=== PATIENT | female | born 1940 | race Caucasian/White ===

== ENCOUNTER 2016-11-26 17:00 | Observation (INO) ==
--- NOTE | 2016-11-26 19:39 | Emergency Department Note ---
START Narrative - START START: I examined this patient and my medical decision-making was reviewed with the Resident Physician. I agree with the documented findings, disposition and treatment plan as described except to the extent set forth below. Female patient recently discharged from [facility] with complaints of knee pain. She admits to warmth and pain around the kneecap on the right side. She has good distal pulses on arrival. At this point we are concern for cellulitis versus DVT. We will obtain duplexes as well as x-ray the knee and obtain basic laboratory analyses. Final disposition will be pending results of ultrasound as well as x-ray findings and laboratory analyses
[2016-11-26] MEDS ORDERED: *HR* HYDROmorphone (PF) 1 MG/ML SYRINGE IVP ONE ×2 (19:41→23:53)
[2016-11-26] MEDS ORDERED: Ondansetron 4 MG/2 ML VIAL IVP ONE (19:41)
[2016-11-26] MEDS ORDERED: 0.9 % Sodium Chloride 1,000 ML IVC ONE (19:58)
[2016-11-26 20:39] LABS: Basophils % 0.4 %; Eosinophils # 0.1 K/mcL (0.0-0.6); Eosinophils % 1.7 %; Hematocrit 24.2 % (35.3-44.9); Immature Granulocytes % 0.4 % (0-4); Lymphocytes # 1.2 K/mcL (0.6-4.6); Lymphocytes % 14.2 %; Mean Corpuscular HGB Conc 30.2 g/dL (31.6-35.5); Mean Corpuscular Hemoglobin 28.1 pg (28.0-33.3); Mean Corpuscular Volume 93.1 fL (83.0-100.0); Mean Platelet Volume 8.4 fL (9.4-12.4); Monocytes # 0.6 K/mcL (0.0-1.3); Monocytes % 6.5 %; Neutrophils # 6.5 K/mcL (1.6-8.9); Platelet Count 343 K/mcL (140-400); Red Cell Distribution Width 13.7 % (11.5-14.5); Segmented Neutrophils % 76.8 %
--- NOTE | 2016-11-26 20:46 | Emergency Department Note ---
Disposition Clinical Impression: Anemia Qualifiers: Anemia type: unspecified type Qualified Code(s): D64.9 - Anemia, unspecified Disposition: Still a Patient Condition: Good Referrals: Frank Stevenson DO [Primary Care Provider] - Forms: ED Satisfaction Letter Time of Disposition: 22:54 General Adult HPI - General Chief complaint: ED Extremity Problem,Nontraumatic Stated complaint: right knee, painful, streak going up Time Seen by Provider: 11/26/16 19:33 Source: patient, family Limitations: no limitations Nursing Notes Reviewed: Yes Vital Signs Reviewed: Yes - History of Present Illness HPI Narrative: 76-year-old female presenting to the emergency department with chief complaint of right knee pain. Patient was recently discharged from [facility] after having an intracranial bleed from a fall. Family members at bedside states she has been more fatigued than normal and has been sleepier. Patient states she does have a history of chronic anemia and has had blood transfusions in the past. Patient denies any trauma or falls that area. She does state she has a history of gout and is concerned and that is what is going on. Patient's family is also concerned about her kidney function because they believe she is not eating and drinking well at home. Patient denies any syncopal episodes or hitting her head. She denies shortness of breath and chest pain at this time. Pain Scale: 8 - Related Data Home Medications Medication Instructions Recorded Confirmed Atorvastatin [Lipitor] 10 mg PO HS 10/23/14 11/26/16 GlyBURIDE 5 mg PO 0800 10/23/14 11/26/16 Quinapril HCl [Accupril] 40 mg PO DAILY 10/23/14 11/26/16 Triamterene/HCTZ 37.5/25mg 1 tab PO DAILY 10/23/14 11/26/16 [Dyazide] Aspirin 81 mg PO DAILY 11/26/16 11/26/16 LORazepam [Ativan] 1 mg PO TID PRN 11/26/16 11/26/16 Metoprolol Succinate 100 mg PO QPM 11/26/16 11/26/16 cloNIDine HCl [CloNIDine HCl] 0.1 mg PO BID 11/26/16 11/26/16 Allergies Allergy/AdvReac Type Severity Reaction Status Date / Time prednisolone Allergy Vomiting Verified 08/15/16 10:59 All systems ED: reviewed and negative except as stated. Constitutional: Reports: weakness. Denies: fever, chills Eyes: Reports: as per HPI ENT ED: Reports: as per HPI Cardiovascular: Denies: chest pain, palpitations Respiratory: Denies: cough, dyspnea, wheezes Gastrointestinal: Denies: abdominal pain, nausea, vomiting Genitourinary: Reports: as per HPI Musculoskeletal: Reports: other (Right knee pain) Integumentary: Reports: other (Patient has multiple ecchymosis noted over the face) Neurological: Denies: numbness, paresthesias Psychiatric: Reports: as per HPI Endocrine: Reports: as per HPI Hematological/Lymphatic: Reports: as per HPI Allergic/Immunologic: Reports: as per HPI Past Medical History - Past Medical History Attestation: Yes The following information was validated with the patient. Medical history: Reports: COPD, diabetes, hypertension Surgical history: Reports: other Psychiatric history: Reports: anxiety - Social History Smoking Status: Current every day smoker Smokeless Tobacco Status: No Alcohol use: Reports: none Drug use: Reports: none Physical Exam - General Limitations: no limitations General appearance: alert, in no apparent distress - Head Head exam: atraumatic, normocephalic, normal inspection - Chest Chest inspection: Present: normal inspection, symmetric chest wall rise. Absent : tenderness, rash - Respiratory Respiratory exam: Present: normal lung sounds bilaterally. Absent: respiratory distress, wheezes - Cardiovascular Cardiovascular exam: Present: regular rate, normal rhythm, normal heart sounds - Abdominal Exam Abdominal exam: Present: soft, Non-Tender. Absent: distention, guarding, rebound - Rectal Exam Rectal exam: Present: normal inspection, normal rectal tone. Absent: fecal impaction, hemorrhoids - Extremities Exam Extremities exam: Present: normal inspection, full ROM - Neurological Exam Neurological exam: Present: alert, oriented X3 - Psychiatric Psychiatric exam: Present: normal affect, normal mood - Skin Skin exam: Present: warm, intact, other (Multiple ecchymosis noted throughout the patient's body. Multiple noted throughout the face and scalp.) Course Course Narrative: 76-year-old female presents to the emergency Department chief complaint of right knee pain and swelling. Patient is concerned for cellulitis or DVT. We will obtain basic lab work along with bilateral lower extremity Doppler and x- ray of the knee. Patient alert and oriented 3 in the room with stable vital signs at this time. - Reevaluation(s) Reevaluation #1: Lab work has returned and showed significant anemia with hemoglobin of 7.3. Bilateral lower extremity Doppler was within normal limits. We will obtain an occult stool sample at this time to determine source of bleeding. Disposition will be admission at this time. Time: 21:57 Reevaluation #2: "Stool is negative. Spoke with the hospitalist chief construction inspector Dr. Alcazar would like a CT scan of the head before he agrees to admit the patient. We will obtain a set this time. Patient alert and oriented 3 with stable vital signs at this time. Time: 22:15 Reevaluation #3: CT of the head still pending at this time. I will transfer care of the patient to my fellow resident Dr. Stewart. Time: 22:54 Vital Signs Temperature 98.0 F 11/26/16 17:25 Pulse Rate 81 11/26/16 17:25 Respiratory Rate 16 11/26/16 17:25 Blood Pressure 219/75 11/26/16 17:25 O2 Sat by Pulse Oximetry 96 11/26/16 17:25 Temperature 98.0 F 11/26/16 17:25 Pulse Rate 71 11/26/16 22:34 Respiratory Rate 16 11/26/16 22:34 Blood Pressure 152/48 11/26/16 22:34 O2 Sat by Pulse Oximetry 96 11/26/16 22:34 Oxygen Delivery Oxygen Delivery Room Air Medical Decision Making - Lab Data Result diagrams: 11/26/16 20:19 11/26/16 20:19 Lab Results 11/26/16 11/26/16 11/26/16 Range/Units 20:19 20:19 20:19 WBC 8.5 (4.3-11.1) K/mcL RBC 2.60 L (3.82-4.97) M/mcL Hgb 7.3 L (11.5-15.4) g/dL Hct 24.2 L (35.3-44.9) % MCV 93.1 (83.0-100.0) fL MCH 28.1 (28.0-33.3) pg MCHC 30.2 L (31.6-35.5) g/dL RDW 13.7 (11.5-14.5) % Plt Count 343 (140-400) K/mcL MPV 8.4 L (9.4-12.4) fL Immature Gran % 0.4 (0-4) % Seg Neutrophils % 76.8 % Lymphocytes % 14.2 % Monocytes % 6.5 % Eosinophils % 1.7 % Basophils % 0.4 % Neutrophils # 6.5 (1.6-8.9) K/mcL Lymphocytes # 1.2 (0.6-4.6) K/mcL Monocytes # 0.6 (0.0-1.3) K/mcL Eosinophils # 0.1 (0.0-0.6) K/mcL Basophils # 0.0 (0.0-0.2) K/mcL ESR 40 H (0-15) mm/hr Sodium 139 (136-145) mEq/L Potassium 4.1 (3.5-4.5) mEq/L Chloride 107 (98-109) mEq/L Carbon Dioxide 26 (19-29) mEq/L BUN 19 (7-20) mg/dL Creatinine 2.00 H (0.57-1.11) mg/dL Est GFR ( Amer) 29 L (> 60) Est GFR (Non-Af Amer) 24 L (> 60) BUN/Creatinine Ratio 10 (6-26) Glucose 161 H (70-99) mg/dL Calculated Osmolality 294 (280-300) Calcium 8.4 L (8.6-10.8) mg/dL Stool Occult Blood (Negative) Blood Type Antibody Screen 11/26/16 11/26/16 Range/Units 21:44 21:57 WBC (4.3-11.1) K/mcL RBC (3.82-4.97) M/mcL Hgb (11.5-15.4) g/dL Hct (35.3-44.9) % MCV (83.0-100.0) fL MCH (28.0-33.3) pg MCHC (31.6-35.5) g/dL RDW (11.5-14.5) % Plt Count (140-400) K/mcL MPV (9.4-12.4) fL Immature Gran % (0-4) % Seg Neutrophils % % Lymphocytes % % Monocytes % % Eosinophils % % Basophils % % Neutrophils # (1.6-8.9) K/mcL Lymphocytes # (0.6-4.6) K/mcL Monocytes # (0.0-1.3) K/mcL Eosinophils # (0.0-0.6) K/mcL Basophils # (0.0-0.2) K/mcL ESR (0-15) mm/hr Sodium (136-145) mEq/L Potassium (3.5-4.5) mEq/L Chloride (98-109) mEq/L Carbon Dioxide (19-29) mEq/L BUN (7-20) mg/dL Creatinine (0.57-1.11) mg/dL Est GFR ( Amer) (> 60) Est GFR (Non-Af Amer) (> 60) BUN/Creatinine Ratio (6-26) Glucose (70-99) mg/dL Calculated Osmolality (280-300) Calcium (8.6-10.8) mg/dL Stool Occult Blood Negative (Negative) Blood Type A POSITIVE Antibody Screen NEGATIVE
[2016-11-26 20:52] LABS: Calcium 8.4 mg/dL (8.6-10.8); Hemoglobin 7.3 g/dL (11.5-15.4); Potassium 4.1 mEq/L (3.5-4.5)
[2016-11-26] MEDS ORDERED: *HR* Labetalol 20 MG/4 ML SYRINGE IVP ONE (21:45)
[2016-11-26] MEDS ORDERED: *HR* LORazepam 1 MG TABLET PO ONE (21:46)
--- NOTE | 2016-11-27 00:37 | Emergency Department Note ---
Disposition Clinical Impression: Right anterior knee pain Anemia Qualifiers: Anemia type: unspecified type Qualified Code(s): D64.9 - Anemia, unspecified Disposition: Admitted As Inpatient Condition: Good Referrals: Frank Stevenson DO [Primary Care Provider] - General Adult HPI - General Chief complaint: ED Extremity Problem,Nontraumatic Stated complaint: right knee, painful, streak going up Time Seen by Provider: 11/26/16 19:33 Source: patient, family Limitations: no limitations Nursing Notes Reviewed: Yes Vital Signs Reviewed: Yes - History of Present Illness Pain Scale: 4 - Related Data Home Medications Medication Instructions Recorded Confirmed Atorvastatin [Lipitor] 10 mg PO HS 10/23/14 11/26/16 GlyBURIDE 5 mg PO 0800 10/23/14 11/26/16 Quinapril HCl [Accupril] 40 mg PO DAILY 10/23/14 11/26/16 Triamterene/HCTZ 37.5/25mg 1 tab PO DAILY 10/23/14 11/26/16 [Dyazide] Aspirin 81 mg PO DAILY 11/26/16 11/26/16 LORazepam [Ativan] 1 mg PO TID PRN 11/26/16 11/26/16 Metoprolol Succinate 100 mg PO QPM 11/26/16 11/26/16 cloNIDine HCl [CloNIDine HCl] 0.1 mg PO BID 11/26/16 11/26/16 Allergies Allergy/AdvReac Type Severity Reaction Status Date / Time prednisolone Allergy Vomiting Verified 08/15/16 10:59 Constitutional: Reports: weakness. Denies: fever, chills Eyes: Reports: as per HPI ENT ED: Reports: as per HPI Cardiovascular: Denies: chest pain, palpitations Respiratory: Denies: cough, dyspnea, wheezes Gastrointestinal: Denies: abdominal pain, nausea, vomiting Genitourinary: Reports: as per HPI Musculoskeletal: Reports: other (Right knee pain) Integumentary: Reports: other (Patient has multiple ecchymosis noted over the face) Neurological: Denies: numbness, paresthesias Psychiatric: Reports: as per HPI Endocrine: Reports: as per HPI Hematological/Lymphatic: Reports: as per HPI Allergic/Immunologic: Reports: as per HPI Past Medical History - Past Medical History Medical history: Reports: COPD, diabetes, hypertension Surgical history: Reports: other Psychiatric history: Reports: anxiety - Social History Smoking Status: Current every day smoker Smokeless Tobacco Status: No Alcohol use: Reports: none Drug use: Reports: none Physical Exam - General Limitations: no limitations General appearance: alert, in no apparent distress Course Vital Signs Temperature 98.0 F 11/26/16 17:25 Pulse Rate 81 11/26/16 17:25 Respiratory Rate 16 11/26/16 17:25 Blood Pressure 219/75 11/26/16 17:25 O2 Sat by Pulse Oximetry 96 11/26/16 17:25 Temperature 98.2 F 11/27/16 00:30 Pulse Rate 72 11/27/16 00:30 Respiratory Rate 16 11/27/16 00:30 Blood Pressure 157/53 11/27/16 00:30 O2 Sat by Pulse Oximetry 99 11/27/16 00:30 Oxygen Delivery Oxygen Delivery Nasal Cannula Medical Decision Making - MDM Narrative Medical decision making narrative: I, Owen Rhodes, examined this patient and my medical decision-making was reviewed with the TRAFFIC MAINTENANCE OFFICER/PA/Advanced Practice Nurse/Resident Physician. I agree with the documented findings, disposition and treatment plan as described except to the extent set forth below. 76-year-old female received in sign out at [address] of the head and reevaluation and likely admission to the hospital for symptomatic anemia. Patient recently had trauma to the head and sustained intracranial hemorrhage. She was cared for at [facility]. Patient now feels increasingly weak and fatigued and presented initially for right knee pain. Right knee does not show evidence of acute fracture on x-ray. She has mild erythema to the anterior knee. She states she has a history of gout and this feels similar. Patient had hemoglobin of 7.3. Patient will be admitted to the hospital for further care and evaluation of her anemia and right knee pain. - Medical Records Medical records reviewed: Yes I reviewed the patient's medical records. - Lab Data Lab results reviewed: Yes I reviewed the patient's lab results. Result diagrams: 11/26/16 20:19 11/26/16 20:19 Lab Results 11/26/16 11/26/16 11/26/16 Range/Units 20:19 20:19 20:19 WBC 8.5 (4.3-11.1) K/mcL RBC 2.60 L (3.82-4.97) M/mcL Hgb 7.3 L (11.5-15.4) g/dL Hct 24.2 L (35.3-44.9) % MCV 93.1 (83.0-100.0) fL MCH 28.1 (28.0-33.3) pg MCHC 30.2 L (31.6-35.5) g/dL RDW 13.7 (11.5-14.5) % Plt Count 343 (140-400) K/mcL MPV 8.4 L (9.4-12.4) fL Immature Gran % 0.4 (0-4) % Seg Neutrophils % 76.8 % Lymphocytes % 14.2 % Monocytes % 6.5 % Eosinophils % 1.7 % Basophils % 0.4 % Neutrophils # 6.5 (1.6-8.9) K/mcL Lymphocytes # 1.2 (0.6-4.6) K/mcL Monocytes # 0.6 (0.0-1.3) K/mcL Eosinophils # 0.1 (0.0-0.6) K/mcL Basophils # 0.0 (0.0-0.2) K/mcL ESR 40 H (0-15) mm/hr Sodium 139 (136-145) mEq/L Potassium 4.1 (3.5-4.5) mEq/L Chloride 107 (98-109) mEq/L Carbon Dioxide 26 (19-29) mEq/L BUN 19 (7-20) mg/dL Creatinine 2.00 H (0.57-1.11) mg/dL Est GFR ( Amer) 29 L (> 60) Est GFR (Non-Af Amer) 24 L (> 60) BUN/Creatinine Ratio 10 (6-26) Glucose 161 H (70-99) mg/dL Calculated Osmolality 294 (280-300) Calcium 8.4 L (8.6-10.8) mg/dL Stool Occult Blood (Negative) Blood Type Antibody Screen Crossmatch 11/26/16 11/26/16 Range/Units 21:44 21:57 WBC (4.3-11.1) K/mcL RBC (3.82-4.97) M/mcL Hgb (11.5-15.4) g/dL Hct (35.3-44.9) % MCV (83.0-100.0) fL MCH (28.0-33.3) pg MCHC (31.6-35.5) g/dL RDW (11.5-14.5) % Plt Count (140-400) K/mcL MPV (9.4-12.4) fL Immature Gran % (0-4) % Seg Neutrophils % % Lymphocytes % % Monocytes % % Eosinophils % % Basophils % % Neutrophils # (1.6-8.9) K/mcL Lymphocytes # (0.6-4.6) K/mcL Monocytes # (0.0-1.3) K/mcL Eosinophils # (0.0-0.6) K/mcL Basophils # (0.0-0.2) K/mcL ESR (0-15) mm/hr Sodium (136-145) mEq/L Potassium (3.5-4.5) mEq/L Chloride (98-109) mEq/L Carbon Dioxide (19-29) mEq/L BUN (7-20) mg/dL Creatinine (0.57-1.11) mg/dL Est GFR ( Amer) (> 60) Est GFR (Non-Af Amer) (> 60) BUN/Creatinine Ratio (6-26) Glucose (70-99) mg/dL Calculated Osmolality (280-300) Calcium (8.6-10.8) mg/dL Stool Occult Blood Negative (Negative) Blood Type A POSITIVE Antibody Screen NEGATIVE Crossmatch See Detail - Radiology Data Radiology results reviewed: Yes I reviewed the patient's radiology results.
[2016-11-27] MEDS ORDERED: 0.9 % Sodium Chloride 250 ML ONE (01:13)
[2016-11-27] MEDS: Lisinopril 20 MG TABLET PO SCH (13:03)
[2016-11-27] MEDS: cloNIDine HCl 0.1 MG TABLET PO SCH ×2 (13:03→20:30)
[2016-11-27] MEDS: Aspirin 81 MG TAB.CHEW PO SCH (13:03)
[2016-11-27] MEDS: methylPREDNISolone 4 MG TABLET PO SCH ×2 (13:06→17:35)
[2016-11-27] MEDS: *HR* LORazepam 1 MG TABLET PO PRN ×2 (13:07→20:34)
[2016-11-27] MEDS ORDERED: Acetaminophen 325 MG TABLET PO PRN (13:08)
[2016-11-27] MEDS ORDERED: Ondansetron 4 MG/2 ML VIAL IVP PRN (13:08)
[2016-11-27] MEDS ORDERED: Naloxone 0.4 MG/ML INJ IVP PRN (13:08)
[2016-11-27] MEDS ORDERED: *HR* HYDROmorphone (PF) 1 MG/ML SYRINGE IVP PRN (13:08)
[2016-11-27 13:40] LABS: Hematocrit 27.5 % (35.3-44.9); Hemoglobin 8.8 g/dL (11.5-15.4)
[2016-11-27 13:51] LABS: % Iron Saturation 10 % (15-50); Iron 29 mcg/dL (50-170); Transferrin 212 mg/dL (180-382)
[2016-11-27 14:27] LABS: Folate 7.7 ng/mL (7.0-31.4)
--- NOTE | 2016-11-27 15:28 | Internal Med History&Physical ---
Date of Encounter: 11/27/16 Time of Encounter: 12:00 Assessment and Plan (1) Right knee pain Current visit: Yes Status: Acute She has had similar symptoms in the past and had been diagnosed with gout and treated outpatient with Medrol pack. Due to her history and typical symptoms I do not think that a knee tap is necessary. I do not suspect septic arthritis. We will prescribe Medrol pack and monitor clinically. I will order PT OT. Qualifiers: Chronicity: acute Qualified Code(s): M25.561 - Pain in right knee (2) Gout attack Current visit: Yes Status: Acute Medrol pack as above. Pain control with acetaminophen and IV Dilaudid. Qualifiers: Gout site: knee Gout etiology: idiopathic Laterality: right Qualified Code(s): M10.061 - Idiopathic gout, right knee (3) Tobacco abuse Current visit: Yes Status: Acute I have provided smoking cessation counseling. We will offer nicotine replacement therapy. (4) CAD (coronary artery disease) Current visit: No Status: Chronic Continue with aspirin, lisinopril, metoprolol and Lipitor. Qualifiers: Coronary Disease-Associated Artery/Lesion type: [place] artery [place] vs. transplanted heart: [place] heart Associated angina: without angina Qualified Code(s): I25.10 - Atherosclerotic heart disease of [place] coronary artery without angina pectoris (5) Anemia Current visit: Yes Status: Acute Hemoglobin dropped to 7.3 today from 12.8 in October 2016 as reviewed in her medical record. Fecal occult blood testing was negative however that does not rule out a slow GI bleeding. For workup I will order iron panel, ferritin B12 and folate. We will consult GI for given that she has been complaining of long-standing nausea and concerned of chronic gastritis or esophageal cancer in an elderly patient with greater than 50 years history of smoking. Qualifiers: Anemia type: unspecified type Qualified Code(s): D64.9 - Anemia, unspecified (6) Non-insulin dependent type 2 diabetes mellitus Current visit: No Status: Acute Continue with glyburide. Check blood glucose fingerstick 4 times daily and add low dose insulin sliding scale. (7) HTN (hypertension) Current visit: No Status: Acute Continue home antihypertensive medication regimen. Qualifiers: Hypertension type: essential hypertension Qualified Code(s): I10 - Essential (primary) hypertension Internal Medicine - H&P: HPI Chief complaint: Right knee pain Admitted From: Emergency Dept Plans for Post Hospital Care: Home History of present illness: Ms. Pierre is a 76 year old female with past medical history significant for gout and recent fall with head injury and intracranial bleed who presented to the hospital for evaluation of right knee pain. She reports severe, sharp right knee pain that started yesterday, worse with ambulation, associated with swelling of the right knee which developed over the same time. Denies associated fevers chills and numbness. She has been unable to bear weight. Review of systems negative for chest pain shortness of breath, vision changes seizures, negative for depression, negative for hematuria and dysuria. Negative for rectal bleeding hematemesis and melena. Past medical history coronary artery disease status post stent placement and gout Surgical history hysterectomy Social history: She is a 1 pack-a-day smoker and has smoked since age 19. Denies alcohol and drug use. Family history: Reviewed and found to be noncontributory in this patient due to her advanced age. Past Med Surg Social Fam HX - Past Medical History Medical history: COPD, diabetes, hypertension Psychiatric history: anxiety - Past Surgical History Surgical History: other - Social History Smoking Status: Current every day smoker Smokeless Tobacco Status: No Alcohol use: none Drug use: none - Family History Mother Hx Family Cardiac Disorders: Yes (heart attack) Hx Family Neuromuscular Disorders: No Hx Family Neurologic Disorders: Yes (stroke) Internal Medicine - H&P: Meds Atorvastatin [Lipitor] 10 mg PO HS 10/23/14 [History] GlyBURIDE 5 mg PO 0800 10/23/14 [History] Quinapril HCl [Accupril] 40 mg PO DAILY 10/23/14 [History] Triamterene/HCTZ 37.5/25mg [Dyazide] 1 tab PO DAILY 10/23/14 [History] Aspirin 81 mg PO DAILY 11/26/16 [History] LORazepam [Ativan] 1 mg PO TID PRN 11/26/16 [History] Metoprolol Succinate 100 mg PO QPM 11/26/16 [History] cloNIDine HCl [CloNIDine HCl] 0.1 mg PO BID 11/26/16 [History] 3 Allergy/AdvReac Type Severity Reaction Status Date / Time prednisolone Allergy Vomiting Verified 08/15/16 10:59 All Systems PM: A 10-system review of systems was performed and is negative for pertinent findings except as documented above in the HPI. - Constitutional Vitals: Temp Pulse Resp BP Pulse Ox 98.5 F 74 16 207/69 97 11/27/16 11:27 11/27/16 11:27 11/27/16 11:27 11/27/16 11:27 11/27/16 11:27 General appearance: Present: A&O X 3, no acute distress - Eye Eye exam: Present: PERRL, conjuntiva pink, sclera anicteric Pupils: Present: PERRL - Respiratory Respiratory exam: Present: CTAB. Absent: accessory muscle use, rales, rhonchi, wheezes - Cardiovascular Cardiovascular exam: Present: RRR, +S1, +S2. Absent: diastolic murmur, gallop, rubs, systolic murmur - GI/Abdominal GI/Abdominal exam: Present: normal bowel sounds, soft, no peritoneal signs. Absent: distended, tenderness - Extremities Exam Additional comments: Right knee swollen and warm to palpation, there is mild redness of the skin on the outside of the right knee, there is a palpable knee effusion. Range of motion deferred due to pain. - Neurological Exam Neurological exam: Present: CN II-XII intact, oriented X3, no focal deficits. Absent: pronater drift, facial droop, speech deficit - Skin Skin exam: Present: dry, intact Internal Med - H&P Results - Labs CBC & Chem 7: 11/27/16 13:28 11/26/16 20:19 Labs: Short CBC 11/27/16 Range/Units 13:28 Hgb 8.8 L D (11.5-15.4) g/dL Hct 27.5 L (35.3-44.9) %
[2016-11-27] MEDS ORDERED: *HR* Dextrose 50 % in Water (Syg) 50 ML SYRINGE IVP PRN (16:27)
[2016-11-27] MEDS ORDERED: D5% in Water 1,000 ML IVC PRN (16:27)
[2016-11-27] MEDS ORDERED: Dextrose Gel 15 GM PO PRN ×2 (16:27)
[2016-11-27] MEDS ORDERED: Iron Sucrose Complex 400 MG in 0.9 % Sodium Chloride 250 ML IVPB ONE (16:28)
[2016-11-27] MEDS: Insulin LISPRO 300 UNITS/3 ML VIAL SQ SCH ×2 (17:36→20:29)
[2016-11-27] MEDS ORDERED: Metoprolol XL (24 HR) Succ 50 MG TAB.ER.24H PO SCH (18:00)
[2016-11-28 05:26] LABS: Basophils % 0.2 %; Hemoglobin 10.2 g/dL (11.5-15.4); Immature Granulocytes % 0.5 % (0-4); Lymphocytes # 0.8 K/mcL (0.6-4.6); Lymphocytes % 5.9 %; Mean Corpuscular HGB Conc 31.9 g/dL (31.6-35.5); Mean Corpuscular Hemoglobin 28.6 pg (28.0-33.3); Mean Corpuscular Volume 89.6 fL (83.0-100.0); Mean Platelet Volume 8.7 fL (9.4-12.4); Monocytes # 0.4 K/mcL (0.0-1.3); Monocytes % 3.1 %; Neutrophils # 11.7 K/mcL (1.6-8.9); Platelet Count 421 K/mcL (140-400); Red Blood Count 3.57 M/mcL (3.82-4.97); Red Cell Distribution Width 13.7 % (11.5-14.5); Segmented Neutrophils % 90.3 %
[2016-11-28 05:37] LABS: Calcium 8.4 mg/dL (8.6-10.8); Magnesium 1.9 mg/dL (1.6-2.6); Potassium 4.8 mEq/L (3.5-4.5)
[2016-11-28] MEDS ORDERED: *HR* GlyBURIDE 5 MG TABLET PO SCH (08:00)
[2016-11-28] MEDS: Lisinopril 20 MG TABLET PO SCH (09:54)
[2016-11-28] MEDS: methylPREDNISolone 4 MG TABLET PO SCH (09:54)
[2016-11-28] MEDS: Aspirin 81 MG TAB.CHEW PO SCH (09:54)
[2016-11-28] MEDS: Insulin LISPRO 300 UNITS/3 ML VIAL SQ SCH ×2 (09:54→11:54)
[2016-11-28] MEDS: cloNIDine HCl 0.1 MG TABLET PO SCH (09:54)
--- NOTE | 2016-11-28 13:04 | Gastroenterology Consult Note ---
<TriplettLuis Daniel byrd Kandis - Last Filed: 11/28/16 13:02> Date of Encounter: 11/28/16 Time of Encounter: 11:20 - Assessment and plan (1) Nausea Current Visit: Yes Status: Acute Assessment and plan: Continue antiemetic and start PPI. Plan for EGD today. Keep NPO. (2) Anemia Current Visit: Yes Status: Acute Assessment and plan: Hgb on admission was 7.3 and this AM Hgb 10.2 after 1 unit PRBC. Hgb 12.8 on . Continue to monitor CBC and transfuse PRBC as needed. Plan for EGD today. If EGD negative, plan for colonoscopy as outpatient. Qualifiers: Anemia type: unspecified type Qualified Code(s): D64.9 - Anemia, unspecified - Time Spent With Patient Total time spent is greater than 50% in coordination of care (as documented) at patient's floor/unit and/or counseling patient: GI History of Present Illness - Data of Consult Patient: new to practice Consult date: 11/28/16 Requesting Physician: Dayana Finnegan CNP - Consult Narrative Reason for consult: Anemia History of present illness: Ms. Pierre is a 76 year old female with PMHx of COPD, DM, HTN, gout, recent fall with head injury and intracranial bleed who presented to the hospital for evaluation of right knee pain. She reports severe, sharp right knee pain that started the day prior to admission, which is worse with ambulation. We were consulted to evaluate anemia and nausea. Hgb on admission was 7.3 and this AM Hgb 10.2 after 1 unit PRBC. Hgb 12.8 on 10/31/2015. She denies fever, chest pain , shortness of breath, abdominal pain, vomiting, diarrhea, constipation, hematuria, melena, hematochezia, or hematemesis. Procedures: None NSAIDs: ASA Anticoagulation: None Past Med Surg Social Fam HX - Past Medical History Medical history: COPD, diabetes, hypertension Psychiatric history: anxiety - Past Surgical History Surgical History: other - Social History Smoking Status: Current every day smoker Smokeless Tobacco Status: No Alcohol use: none Drug use: none - Family History Mother Hx Family Cardiac Disorders: Yes (heart attack) Hx Family Neuromuscular Disorders: No Hx Family Neurologic Disorders: Yes (stroke) - Gastrointestinal Gastrointestinal: Present: as per HPI - Constitutional Constitutional: as per HPI - EENT Eyes: as per HPI Ears: Present: as per HPI Nose, mouth and throat: Present: as per HPI - Cardiovascular Cardiovascular ROS: Present: as per HPI - Respiratory Respiratory IM: Present: as per HPI - Genitourinary Genitourinary: Absent: change in color, Urinary frequency - Neurological ROS Neurological GI: Present: as per HPI - Hematologic/Lymphatic Hematologic/Lymphatic pediatric: Present: as per HPI - Musculoskeletal Musculoskeletal ROS GI: Present: as per HPI - Integumentary Integumentary GI: Present: as per HPI - Psychiatric ROS Psychiatric GI: Present: as per HPI - Endocrine Endocrine IM: Present: as per HPI - Constitutional Vitals: Temp Pulse Resp BP Pulse Ox 97.9 F 92 18 162/73 96 11/28/16 11:26 11/28/16 11:26 11/28/16 11:26 11/28/16 11:26 11/28/16 11:26 General appearance: Present: cooperative, A&O X 3, no acute distress, answers questions appropriately - Head Head exam: Present: atraumatic, normocephalic - Eye Eye exam: Present: normal appearance, sclera anicteric - ENT ENT exam: Present: mucous membranes dry - Neck Neck exam general surgery: Present: normal inspection, trachea midline - Respiratory Respiratory exam: Present: decreased breath sounds, CTAB - Cardiovascular Cardiovascular exam: Present: RRR, +S1, +S2 - GI/Abdominal GI/Abdominal exam: Present: soft, no peritoneal signs. Absent: distended, firm , guarding, tenderness - Rectal Rectal exam: Present: deferred - Extremities Exam Extremities exam: Present: warm - Neurological Exam Neurological exam: Present: no focal deficits - Psychiatric Psychiatric exam: Present: normal affect, normal mood - Skin Skin exam: Present: dry, intact, normal color, warm Results - Labs CBC & Chem 7: 11/28/16 05:09 11/28/16 05:09 Labs: Last Result ESR 40 mm/hr (0-15) H 11/26/16 20:19 Calcium 8.4 mg/dL (8.6-10.8) L 11/28/16 05:09 Iron 29 mcg/dL (50-170) L 11/27/16 13:28 % Saturation 10 % (15-50) L 11/27/16 13:28 Transferrin 212 mg/dL (180-382) 11/27/16 13:28 Ferritin 33 ng/ml (5-204) 11/27/16 13:28 Vitamin B12 437 pg/mL (213-816) 11/27/16 13:28 Folate 7.7 ng/mL (7.0-31.4) 11/27/16 13:28 Stool Occult Blood Negative (Negative) 11/26/16 21:57 Entire Visit Hgb 10.2 g/dL (11.5-15.4) L 11/28/16 05:09 Hct 32.0 % (35.3-44.9) L 11/28/16 05:09 Ferritin 33 ng/ml (5-204) 11/27/16 13:28 Folate 7.7 ng/mL (7.0-31.4) 11/27/16 13:28 Consult Discharge Plan - Plan Referrals: Colopy,Frank Burger DO [Primary Care Provider] - <Irma Romo - Last Filed: 11/28/16 14:44> Date of Encounter: 11/28/16 Time of Encounter: 13:00 - Time Spent With Patient Total time spent is greater than 50% in coordination of care (as documented) at patient's floor/unit and/or counseling patient: GI History of Present Illness - Data of Consult Requesting Physician: Dayana Finnegan CNP - Consult Narrative History of present illness: Ms. Pierre is a 76 year old female - Constitutional Vitals: Temp Pulse Resp BP Pulse Ox 98.0 F 72 17 166/60 94 11/28/16 14:36 11/28/16 14:36 11/28/16 14:36 11/28/16 14:36 11/28/16 14:36 Results - Labs CBC & Chem 7: 11/28/16 05:09 11/28/16 05:09 Labs: Last Result ESR 40 mm/hr (0-15) H 11/26/16 20:19 Calcium 8.4 mg/dL (8.6-10.8) L 11/28/16 05:09 Iron 29 mcg/dL (50-170) L 11/27/16 13:28 % Saturation 10 % (15-50) L 11/27/16 13:28 Transferrin 212 mg/dL (180-382) 11/27/16 13:28 Ferritin 33 ng/ml (5-204) 11/27/16 13:28 Vitamin B12 437 pg/mL (213-816) 11/27/16 13:28 Folate 7.7 ng/mL (7.0-31.4) 11/27/16 13:28 Stool Occult Blood Negative (Negative) 11/26/16 21:57 Entire Visit Hgb 10.2 g/dL (11.5-15.4) L 11/28/16 05:09 Hct 32.0 % (35.3-44.9) L 11/28/16 05:09 Ferritin 33 ng/ml (5-204) 11/27/16 13:28 Folate 7.7 ng/mL (7.0-31.4) 11/27/16 13:28 - Attending Attestation I examined this patient and my medical decision-making was reviewed with the Resident Physician. I agree with the documented findings, disposition and treatment plan as described except to the extent set forth below.
--- NOTE | 2016-11-28 13:30 | Anesthesia Evaluation PreOp ---
Date of Encounter: 11/28/16 Time of Encounter: 13:28 - Past History Planned Operation: EGD Cardiac History: HTN, Other (CAD) Pulmonary History: Smoker, COPD [employer] History: Other (Anxiety) Other Medical History: Diabetes Type II, Other (GOUT) : No Alcohol Use: none Drug use: none Medications and Allergies Atorvastatin [Lipitor] 10 mg PO HS 10/23/14 [History] GlyBURIDE 5 mg PO 0800 10/23/14 [History] Quinapril HCl [Accupril] 40 mg PO DAILY 10/23/14 [History] Triamterene/HCTZ 37.5/25mg [Dyazide] 1 tab PO DAILY 10/23/14 [History] Aspirin 81 mg PO DAILY 11/26/16 [History] LORazepam [Ativan] 1 mg PO TID PRN 11/26/16 [History] Metoprolol Succinate 100 mg PO QPM 11/26/16 [History] cloNIDine HCl [CloNIDine HCl] 0.1 mg PO BID 11/26/16 [History] 3 Allergy/AdvReac Type Severity Reaction Status Date / Time prednisolone Allergy Vomiting Verified 08/15/16 10:59 - Meds/Allergy Pre-op Review Medications Reviewed: Yes Allergies Reviewed: Yes Beta Blockers on Current Med List: Yes If Beta Blockers taken, Date/Time (Last Dose taken): 17:35 11/27/16 Anesthesia Results - Labs 11/28/16 05:09 11/28/16 05:09 Echocardiogram Name: LEVI CAMPO Date of Study: 10/24/2014 Date: 1940 Ht: 61.0 in Impressions: LVEF 70-75%. Mild concentric left ventricular hypertrophy. Mild left ventricular diastolic dysfunction. No pulmonary hypertension. Left Ventricular Wall Motion: Rest Echo Findings The apex, apical inferior, mid inferior, basal inferior, apical anterior, mid anterior, basal anterior, apical septal, mid inferior septal, basal inferior septal, apical lateral, mid anterior lateral, basal anterior lateral, mid anterior septal, mid inferior lateral, basal anterior septal and basal inferior lateral mckeon were hyperkinetic. - Imaging EKG: image reviewed (SINUS RHYTHM POSSIBLE INFERIOR MYOCARDIAL INFARCTION, PROBABLY OLD) Anesthesia Exam O2 Sat Weight 50.167 kg O2 Sat by Pulse Oximetry 96 O2 Sat by Pulse Oximetry 94 O2 Sat by Pulse Oximetry 92 O2 Sat by Pulse Oximetry 93 O2 Sat by Pulse Oximetry 94 O2 Sat by Pulse Oximetry 94 Vital Signs Temp Pulse Resp BP Pulse Ox 98.0 F 81 16 219/75 96 11/26/16 17:25 11/26/16 17:25 11/26/16 17:25 11/26/16 17:25 11/26/16 17:25 Vital Signs/O2 Sat, Most Current Temp Pulse Resp BP Pulse Ox 97.9 F 92 18 162/73 96 11/28/16 11:26 11/28/16 11:26 11/28/16 11:26 11/28/16 11:26 11/28/16 11:26 Height: 5'1'' Weight: 110#
[2016-11-28] MEDS ORDERED: *HR* FentaNYL (PF) 100 MCG/2 ML VIAL ONE (13:34)
[2016-11-28] MEDS ORDERED: *HR* Midazolam HCl 5 MG/5 ML VIAL IVP ONE (13:34)
[2016-11-28] MEDS ORDERED: Tetracaine/Benzocaine/Butamben 200MG/SPRAY (100SPY/BOT) MM ONE (13:36)
[2016-11-28] MEDS ORDERED: Simethicone 40 MG/0.6 ML MLS IR ONE (13:36)
[2016-11-28] MEDS ORDERED: 0.9 % Sodium Chloride 1,000 ML IVC SCH (13:45)
[2016-11-28] MEDS: *HR* Midazolam HCl 5 MG/5 ML VIAL IVP PRN ×2 (14:12→14:14)
[2016-11-28] MEDS: *HR* FentaNYL (PF) 100 MCG/2 ML VIAL IVP PRN ×2 (14:12→14:14)
[2016-11-28 14:37] VITALS: BP 166/60
--- NOTE | 2016-11-28 15:22 | Discharge Summary ---
Date of Encounter: 11/28/16 Time of Encounter: 15:17 - Discharge Diagnosis (1) Right knee pain Priority: Primary Status: Acute Qualifiers: Chronicity: acute Qualified Code(s): M25.561 - Pain in right knee (2) Gout attack Priority: Primary Status: Acute Qualifiers: Gout site: knee Gout etiology: idiopathic Laterality: right Qualified Code(s): M10.061 - Idiopathic gout, right knee (3) Anemia Priority: Primary Status: Acute Qualifiers: Anemia type: unspecified type Qualified Code(s): D64.9 - Anemia, unspecified (4) Gastric ulcer Priority: Secondary Status: Acute Qualifiers: Qualified Code(s): K25.3 - Acute gastric ulcer without hemorrhage or perforation (5) Non-insulin dependent type 2 diabetes mellitus Priority: Secondary Status: Acute (6) HTN (hypertension) Priority: Secondary Status: Acute Qualifiers: Hypertension type: essential hypertension Qualified Code(s): I10 - Essential (primary) hypertension (7) Tobacco abuse Priority: Secondary Status: Acute - Discharge Medications Prescriptions: methylPREDNISolone [Medrol] 20 mg PO DAILY #15 tab Omeprazole [PriLOSEC] 20 mg PO BIDAC #60 cap Home Medications: Atorvastatin [Lipitor] 10 mg PO HS 10/23/14 [History] GlyBURIDE 5 mg PO 0800 10/23/14 [History] Quinapril HCl [Accupril] 40 mg PO DAILY 10/23/14 [History] Triamterene/HCTZ 37.5/25mg [Dyazide] 1 tab PO DAILY 10/23/14 [History] Aspirin 81 mg PO DAILY 11/26/16 [History] LORazepam [Ativan] 1 mg PO TID PRN 11/26/16 [History] Metoprolol Succinate 100 mg PO QPM 11/26/16 [History] cloNIDine HCl [CloNIDine HCl] 0.1 mg PO BID 11/26/16 [History] Ferrous Sulfate 325 mg PO DAILY #30 tablet 11/28/16 [Rx] Omeprazole [PriLOSEC] 20 mg PO BIDAC #60 cap 11/28/16 [Rx] methylPREDNISolone [Medrol] 20 mg PO DAILY #15 tab 11/28/16 [Rx] Allergies/Adverse Reactions: 3 Allergy/AdvReac Type Severity Reaction Status Date / Time prednisolone Allergy Vomiting Verified 08/15/16 10:59 Date of admission: 11/26/16 23:55 Primary care physician: Frank Stevenson Consults: 11/27/16 13:12 Consult to Physician [CONS] Routine Consulting Provider: Irma Romo Reason for Consult: Anemia, nausea Call Completed: Yes 11/27/16 13:15 Consult to Occupational Therapy [CONS] Routine Comment: Evaluate, develop and implement POC Reason for Consult: Right knee pain and difficulty ambulating. Consult to Physical Therapy [CONS] Routine Comment: Evaluate, develop and implement POC Reason for Consult: Right knee pain, difficulty ambulating - Patient Status Disposition: Home, Self-Care Condition: Good - Discharge Instructions Follow Up With: Frank Stevenson DO [Primary Care Provider] - Forms: ED Satisfaction Letter - Diet and Activity Activity: increase activity as tolerated Diet: low salt diet Hospital course: Ms. Pierre is a 76 year old female with past medical history significant for gout and recent fall with head injury and intracranial bleed who presented to the hospital for evaluation of right knee pain. She reports severe, sharp right knee pain that started yesterday, worse with ambulation, associated with swelling of the right knee which developed over the same time. Denies associated fevers chills and numbness. She has been unable to bear weight. Pt was admitted in the hospital and started her on Medrol pack. Her swelling and pain completely disappeared in Rt knee today. She also happened to have acute iron deficiency anemia mostly due to CKD-3, as well as questionable GI bleed. We consulted GI Dr. Romo who did EGD this morning and found she does have non bleeding pyloric ulcer. So will send her home on PPI. She had 1 U PRBC and Iron IV infusion received and her Hb this morning at 10.2 Will d/c her home in stable condition with PO PPI and FeSo4, as well as Medrol pack for Gout attack. - Time Spent with Patient Total time spent providing and/or coordinating discharge services: - Constitutional Vitals: Temp Pulse Resp BP Pulse Ox 98.0 F 72 17 166/60 94 11/28/16 14:36 11/28/16 14:36 11/28/16 14:36 11/28/16 14:36 11/28/16 14:36 General appearance: Present: A&O X 3, no acute distress - Head Head exam: Present: atraumatic, normal inspection - Respiratory Respiratory exam: Present: decreased breath sounds. Absent: respiratory distress, rhonchi, wheezes - Cardiovascular Cardiovascular exam: Present: RRR, +S1, +S2. Absent: diastolic murmur, gallop, rubs, systolic murmur - GI/Abdominal GI/Abdominal exam: Present: normal bowel sounds, soft, no peritoneal signs. Absent: distended, tenderness - Extremities Exam Extremities exam: Absent: calf tenderness, pedal edema, tenderness Additional comments: no swelling / no tenderness / no erythema noticed in Rt Knee - Back Exam Back exam: Absent: CVA tenderness (L), CVA tenderness (R) - Neurological Exam Neurological exam: Present: alert, oriented X3 - Psychiatric Psychiatric exam: Present: normal affect, normal mood
--- NOTE | 2016-11-28 15:31 | Physician Discharge Referral ---
Home Health/Hosp Referral Info Transfer to: Home Health - Diagnosis (1) Right knee pain Status: Acute (2) Gout attack Status: Acute (3) Anemia Status: Acute (4) Gastric ulcer Status: Acute (5) Non-insulin dependent type 2 diabetes mellitus Status: Acute (6) HTN (hypertension) Status: Acute (7) Tobacco abuse Status: Acute - Respiratory Orders Smoking Cessation: Smoking cessation has been advised. For more information, call the [place] Tobacco Quit Line at 0-421-ZXRN-NOW. - Services Needed Following services are medically necessary services: Nursing, Physical Therapy - Transfer Medications Prescriptions: Ferrous Sulfate 325 mg PO DAILY #30 tablet methylPREDNISolone [Medrol] 20 mg PO DAILY #15 tab Omeprazole [PriLOSEC] 20 mg PO BIDAC #60 cap Home Medications: Atorvastatin [Lipitor] 10 mg PO HS 10/23/14 [History] GlyBURIDE 5 mg PO 0800 10/23/14 [History] Quinapril HCl [Accupril] 40 mg PO DAILY 10/23/14 [History] Triamterene/HCTZ 37.5/25mg [Dyazide] 1 tab PO DAILY 10/23/14 [History] Aspirin 81 mg PO DAILY 11/26/16 [History] LORazepam [Ativan] 1 mg PO TID PRN 11/26/16 [History] Metoprolol Succinate 100 mg PO QPM 11/26/16 [History] cloNIDine HCl [CloNIDine HCl] 0.1 mg PO BID 11/26/16 [History] Ferrous Sulfate 325 mg PO DAILY #30 tablet 11/28/16 [Rx] Omeprazole [PriLOSEC] 20 mg PO BIDAC #60 cap 11/28/16 [Rx] methylPREDNISolone [Medrol] 20 mg PO DAILY #15 tab 11/28/16 [Rx] Allergies/Adverse Reactions: 3 Allergy/AdvReac Type Severity Reaction Status Date / Time prednisolone Allergy Vomiting Verified 08/15/16 10:59 Certification: Further, I certify that my clinical findings support that this patient is homebound (i.e. absences from home require considerable and taxing effort and are for medical reasons or bahai services or infrequently or short duration when for other reasons) because: Homebound Reason: Patient requires assistance of a person or device to safely leave home Attestation: My signature below is to certify that this patient is under my care and that I, or nurse practitioner, or a physician's department assistant working with me, has a face-to -face encounter with this patient.
== END 2016-11-28 18:28 | disposition home or self-care (01) ==
LOC: 3BNU 17:00 → EMEROO 17:00 → 3BNU 11-27 00:22
PROVIDERS: ADMIT Internal Medicine; ATTEND Registered Nurse
PROC: ENDOEBX (2016-11-28 13:45)

== ENCOUNTER 2018-07-23 18:44 | Inpatient (IN) ==
[2018-07-23 20:54] LABS: Basophils % 0.4 %; Eosinophils # 0.1 K/mcL (0.0-0.6); Hematocrit 34.1 % (35.3-44.9); Hemoglobin 10.8 g/dL (11.5-15.4); Immature Granulocytes % 0.3 % (0-4); Lymphocytes # 0.9 K/mcL (0.6-4.6); Lymphocytes % 12.4 %; Mean Corpuscular HGB Conc 31.7 g/dL (31.6-35.5); Mean Corpuscular Hemoglobin 29.5 pg (28.0-33.3); Mean Platelet Volume 9.1 fL (9.4-12.4); Monocytes # 0.5 K/mcL (0.0-1.3); Monocytes % 6.9 %; Neutrophils # 5.6 K/mcL (1.6-8.9); Platelet Count 229 K/mcL (140-400); Red Blood Count 3.66 M/mcL (3.82-4.97); Red Cell Distribution Width 15.1 % (11.5-14.5); White Blood Count 7.2 K/mcL (4.3-11.1)
[2018-07-23 21:01] LABS: Mean Corpuscular Volume 93.2 fL (83.0-100.0)
[2018-07-23 21:15] LABS: Bilirubin,Urine Negative (Negative); Blood,Urine Trace-lysed (Negative); Clarity,Urine Clear (Clear); Color,Urine Yellow (Yellow); Glucose,Urine (UA) Normal (Normal); Ketones,Urine Negative (Negative); Leukocyte Esterase,Urine Negative (Negative); Nitrite,Urine Negative (Negative); PH,Urine 6.5 pH Units (5.0-8.0); Protein,Urine >=300 mg/dL (Neg-Trace); Specific Gravity,Urine 1.025 (1.010-1.025); Urobilinogen,Urine Normal (Normal)
[2018-07-23 21:25] LABS: Bacteria,Urine None Seen per hpf (None-Few); Hyaline Casts,Urine None Seen per lpf (None-Few); Squamous Epithelial Cell,Urine Many per lpf (None-Few); WBC,Urine 0-3 per hpf (0-3)
[2018-07-23 22:12] LABS: Potassium 3.6 mEq/L (3.5-5.1); Troponin I 0.04 ng/mL (< 0.04)
[2018-07-23] MEDS ORDERED: Aspirin 325 MG TABLET PO ONE (22:19)
--- NOTE | 2018-07-23 22:19 | Emergency Department Note ---
Disposition Clinical Impression: Hypertension, Troponin level elevated Disposition: Admitted As Inpatient Condition: Good Referrals: Jim Sandy [Primary Care Provider] - Forms: ED Satisfaction Letter, Work/School Release Time of Disposition: 23:17 General Adult HPI - General Chief complaint: ED General Medical Stated complaint: "high blood pressure" Time Seen by Provider: 07/23/18 20:23 Source: patient Limitations: no limitations - History of Present Illness HPI Narrative: Patient is a 78-year-old female presents to the emergency department with chief complaint of hypertension. Patient reports she has prior history of hypertension and her primary doctor has been adjusting her medications in the last week. Patient states that this morning she had and after a dealing with her Vomiting on the floor she began to have episodes where she felt lightheaded. The patient checked her blood pressure and it was elevated in the 200s. The patient states she is not having any chest pain or shortness of breath denies focal neurological deficit. Patient denies abdominal pain denies diarrhea. When the patient is laying down she feels asymptomatic whenever she stands up she feels lightheaded. Pain Scale: 0 - Related Data Home Medications Medication Instructions Recorded Confirmed Aspirin 81 mg PO DAILY 11/26/16 05/01/18 Metoprolol Succinate 100 mg PO QPM 11/26/16 05/01/18 Atorvastatin [Lipitor] 10 mg PO DAILY 08/26/17 05/01/18 LORazepam [Ativan] 1 mg PO BID 08/26/17 05/01/18 Allergies Allergy/AdvReac Type Severity Reaction Status Date / Time prednisolone AdvReac Vomiting Verified 07/23/18 18:51 All systems ED: reviewed and negative except as stated. Past Medical History - Past Medical History Attestation: Yes The following information was validated with the patient. Medical history: Reports: COPD, diabetes, hypertension, myocardial infarction, renal disease Surgical history: Reports: other Psychiatric history: Reports: anxiety DIRECTOR [employer] history: Reports: no DIRECTOR [employer] history - Social History Smoking Status: Current every day smoker Smokeless Tobacco Status: No Alcohol use: Reports: none Drug use: Reports: none Physical Exam General: Conversant and pleasant interactive and nontoxic. Head: Normocephalic/atraumatic Eyes:PERRLA, EOMI, no conjunctivitis Nares: Without d/c. Ears: No erythema or d/c noted. Oralpharnyx: P&MMM noted, Neck: Supple, no JVD or RETORT FORKER noted. Cardovascular: regular rate and rhythm without murmur, brisk capillary refill, no peripheral edema. Lungs: Clear to ascultation bilaterally, non-labored Abd: Soft nontender, Non Distended, no guarding, no rebound. : Defered Extremities: moves all extremities equally Neuro: AOx3, no obvious gross neuro deficit Psych: Normal Affect Derm: No rash noted - General Limitations: no limitations General appearance: alert, in no apparent distress Course Course Narrative: The patient is currently asymptomatic and not having chest pain was able to ambulate to the bathroom without difficulty given the patient has a mildly elevated troponin, the case was discussed with the hospitalist patient to the hospital for observation Vital Signs Temperature 98.3 F 07/23/18 18:51 Pulse Rate 97 07/23/18 18:51 Respiratory Rate 20 07/23/18 18:51 Blood Pressure 222/89 07/23/18 18:51 O2 Sat by Pulse Oximetry 98 07/23/18 18:51 Temperature 98.3 F 07/23/18 20:21 Pulse Rate 70 07/23/18 23:14 Respiratory Rate 17 07/23/18 23:14 Blood Pressure 212/84 07/23/18 23:14 O2 Sat by Pulse Oximetry 95 07/23/18 23:14 Oxygen Delivery Oxygen Delivery Room Air Medical Decision Making - Lab Data Result diagrams: 07/23/18 20:41 07/23/18 20:41 Lab Results 07/23/18 07/23/18 07/23/18 Range/Units 20:41 20:41 20:41 WBC 7.2 (4.3-11.1) K/mcL RBC 3.66 L (3.82-4.97) M/mcL Hgb 10.8 L (11.5-15.4) g/dL Hct 34.1 L (35.3-44.9) % MCV 93.2 D (83.0-100.0) fL MCH 29.5 (28.0-33.3) pg MCHC 31.7 (31.6-35.5) g/dL RDW 15.1 H (11.5-14.5) % Plt Count 229 (140-400) K/mcL MPV 9.1 L (9.4-12.4) fL Immature Gran % 0.3 (0-4) % Seg Neutrophils % 78.0 % Lymphocytes % 12.4 % Monocytes % 6.9 % Eosinophils % 2.0 % Basophils % 0.4 % Neutrophils # 5.6 (1.6-8.9) K/mcL Lymphocytes # 0.9 (0.6-4.6) K/mcL Monocytes # 0.5 (0.0-1.3) K/mcL Eosinophils # 0.1 (0.0-0.6) K/mcL Basophils # 0.0 (0.0-0.2) K/mcL Sodium 142 (136-145) mEq/L Potassium 3.6 (3.5-5.1) mEq/L Chloride 104 (98-107) mEq/L Carbon Dioxide 30 H (23-29) mEq/L BUN 47 H (8-23) mg/dL Creatinine 2.94 H (0.60-1.20) mg/dL Est GFR ( Amer) 19 L (> 60) Est GFR (Non-Af Amer) 15 L (> 60) BUN/Creatinine Ratio 16 (6-26) Glucose 77 (70-105) mg/dL Calculated Osmolality 305 H (280-300) Calcium 9.0 (8.6-10.3) mg/dL Troponin I 0.04 H* (< 0.04) ng/mL B-Natriuretic Peptide 549 H (Less than 100) pg/mL Urine Color (Yellow) Urine Clarity (Clear) Urine pH (5.0-8.0) pH Units Ur Specific [place] (1.010-1.025) Urine Protein (Neg-Trace) mg/dL Urine Glucose (UA) (Normal) mg/dL Urine Ketones (Negative) mg/dL Urine Blood (Negative) Urine Nitrite (Negative) Urine Bilirubin (Negative) Urine Urobilinogen (Normal) mg/dL Ur Leukocyte Esterase (Negative) Urine Microscopic RBC (0-3) per hpf Urine Microscopic WBC (0-3) per hpf Ur Squamous Epith Cells (None-Few) per lpf Urine Bacteria (None-Few) per hpf Hyaline Casts (None-Few) per lpf Ur Culture Indicated? (NO) 07/23/18 Range/Units 21:06 WBC (4.3-11.1) K/mcL RBC (3.82-4.97) M/mcL Hgb (11.5-15.4) g/dL Hct (35.3-44.9) % MCV (83.0-100.0) fL MCH (28.0-33.3) pg MCHC (31.6-35.5) g/dL RDW (11.5-14.5) % Plt Count (140-400) K/mcL MPV (9.4-12.4) fL Immature Gran % (0-4) % Seg Neutrophils % % Lymphocytes % % Monocytes % % Eosinophils % % Basophils % % Neutrophils # (1.6-8.9) K/mcL Lymphocytes # (0.6-4.6) K/mcL Monocytes # (0.0-1.3) K/mcL Eosinophils # (0.0-0.6) K/mcL Basophils # (0.0-0.2) K/mcL Sodium (136-145) mEq/L Potassium (3.5-5.1) mEq/L Chloride (98-107) mEq/L Carbon Dioxide (23-29) mEq/L BUN (8-23) mg/dL Creatinine (0.60-1.20) mg/dL Est GFR ( Amer) (> 60) Est GFR (Non-Af Amer) (> 60) BUN/Creatinine Ratio (6-26) Glucose (70-105) mg/dL Calculated Osmolality (280-300) Calcium (8.6-10.3) mg/dL Troponin I (< 0.04) ng/mL B-Natriuretic Peptide (Less than 100) pg/mL Urine Color Yellow (Yellow) Urine Clarity Clear (Clear) Urine pH 6.5 (5.0-8.0) pH Units Ur Specific [place] 1.025 (1.010-1.025) Urine Protein >=300 H (Neg-Trace) mg/dL Urine Glucose (UA) Normal (Normal) mg/dL Urine Ketones Negative (Negative) mg/dL Urine Blood Trace-lysed H (Negative) Urine Nitrite Negative (Negative) Urine Bilirubin Negative (Negative) Urine Urobilinogen Normal (Normal) mg/dL Ur Leukocyte Esterase Negative (Negative) Urine Microscopic RBC 5-15 H (0-3) per hpf Urine Microscopic WBC 0-3 (0-3) per hpf Ur Squamous Epith Cells Many H (None-Few) per lpf Urine Bacteria None Seen (None-Few) per hpf Hyaline Casts None Seen (None-Few) per lpf Ur Culture Indicated? NO (NO)
[2018-07-24] MEDS ORDERED: Naloxone 0.4 MG/ML INJ IVP PRN (03:19)
--- NOTE | 2018-07-24 03:49 | Internal Med History&Physical ---
Date of Encounter: 07/24/18 Time of Encounter: 02:41 Internal Medicine - H&P: HPI Chief complaint: Hypertensive urgency Admitted From: Emergency Dept Plans for Post Hospital Care: Home History of present illness: Ms. Pierre is a 78 year old female Patient presented to the emergency room with concerns about her blood pressure. She has a home pressure cuff, and has noted that it has been elevated today. She remembers the systolic had been 210 at home. She has a history of hypertension, and has seen her primary care physician for medication.after multiple checks she decided to come to the emergency room for further evaluation. In the emergency room patient's initial vital signs indicated a blood pressure of 222/89. CBC significant for a hemoglobin of 10.8 BMP notable for elevated creatinine of 2.94 and GFR of 15. She has a known history of chronic kidney disease stage IV. Initial troponin 0.04 BNP 549 Urinalysis negative for infection Chest x-ray was noted for having round opacities within the right middle lung and a CT of the chest is recommended. Chest CT demonstrated scattered tiny pulmonary nodules, are she will middle lobe collapse and emphysema. Head CT showed no acute abnormality. EKG: Normal sinus rhythm, rate of 94. QTC 414. No ischemic changes Due to patient's elevated blood pressure and elevated troponin she was admitted to the hospital for further management. Upon my evaluation, patient is resting comfortably in the nostril but in no acute distress. She denies chest pain, abdominal pain, nausea, vomiting, diarrhea and constipation she also denies vision changes but did feel dizzy earlier today. She is a pack a day smoker, as well as chronic kidney disease patient seeing nephrology. She is a DNR/DNI. Past Med Surg Social Fam HX - Past Medical History Medical history: COPD, diabetes, hypertension, myocardial infarction, renal disease Additional medical history: possible renal disease? Psychiatric history: anxiety - Past Surgical History Surgical History: other Additional surgical history: stents x2 (2004) - Social History Smoking Status: Current every day smoker Packs per day: a pack a day Smokeless Tobacco Status: No Alcohol use: none Drug use: none - Family History Father Living Status: Cause of : heart attack Mother Family Member Ethnicity: Non- Living Status: Age at : 62 Cause of : stroke Hx Family Cardiac Disorders: Yes Hx Family Neuromuscular Disorders: No Hx Family Neurologic Disorders: Yes (stroke) Internal Medicine - H&P: Meds Aspirin 81 mg PO DAILY 11/26/16 [History] Metoprolol Succinate 100 mg PO QPM 11/26/16 [History] Atorvastatin [Lipitor] 10 mg PO DAILY 08/26/17 [History] LORazepam [Ativan] 1 mg PO BID 08/26/17 [History] hydrALAZINE [HydrALAZINE] 25 mg PO BID 07/24/18 [History] Allergy/AdvReac Type Severity Reaction Status Date / Time prednisolone AdvReac Vomiting Verified 07/23/18 18:51 All Systems PM: A 10-system review of systems was performed and is negative for pertinent findings except as documented above in the HPI. - Constitutional Vitals: Temp Pulse Resp BP Pulse Ox 98.6 F 65 16 210/84 95 07/24/18 01:16 07/24/18 01:16 07/24/18 01:16 07/24/18 01:32 07/24/18 01:16 General appearance: Present: cooperative, A&O X 3, pleasant, no acute distress, answers questions appropriately Exam: - - Head Head exam: Present: normal inspection - Eye Eye exam: Present: EOMI, normal appearance - Neck Neck exam general surgery: Present: full ROM - Cardiovascular Cardiovascular exam: Present: RRR. Absent: diastolic murmur, systolic murmur - GI/Abdominal GI/Abdominal exam: Present: normal bowel sounds, soft. Absent: tenderness - Extremities Exam Extremities exam: Present: warm, radial pulses palpable and symmetrical. Absent: calf tenderness, pedal edema, tenderness - Neurological Exam Neurological exam: Present: no focal deficits, strengths equal and symetr throughout. Absent: motor sensory deficit, facial droop, speech deficit - Skin Skin exam: Present: dry, normal color, warm Internal Med - H&P Results - Labs CBC & Chem 7: 07/23/18 20:41 07/23/18 20:41 Labs: Short CBC 07/23/18 Range/Units 20:41 WBC 7.2 (4.3-11.1) K/mcL Hgb 10.8 L (11.5-15.4) g/dL Hct 34.1 L (35.3-44.9) % Plt Count 229 (140-400) K/mcL Neutrophils # 5.6 (1.6-8.9) K/mcL BMP 07/23/18 20:41 Sodium 142 Potassium 3.6 Chloride 104 Carbon Dioxide 30 H BUN 47 H Creatinine 2.94 H Glucose 77 Calcium 9.0 Cardiac Enzymes 07/23/18 Range/Units 20:41 Troponin I 0.04 H* (< 0.04) ng/mL Urine 07/23/18 Range/Units 21:06 Urine Color Yellow (Yellow) Urine Clarity Clear (Clear) Urine pH 6.5 (5.0-8.0) pH Units Ur Specific [place] 1.025 (1.010-1.025) Urine Protein >=300 H (Neg-Trace) mg/dL Urine Glucose (UA) Normal (Normal) mg/dL - Impressions ITS Impressions Chest X-Ray 07/23/18 19:09 IMPRESSION: Rounded opacity within the right midlung, not well visualized previously. Further evaluation with chest CT is recommended at this time. Question perihilar infiltrate on the right. That will also be better evaluated on the CT. D/ / Jose Rafael Calzada MD / Jose Rafael Calzada MD Interpreting Provider: Jose Rafael Calzada MD Head CT 07/23/18 20:55 IMPRESSION: No acute intracranial abnormality. D/ / Ousmane Limon MD / Ousmane Limon MD Interpreting Provider: Ousmane Limon MD Chest CT 07/23/18 22:16 IMPRESSION: 1. Scattered tiny pulmonary nodules, likely not visible on conventional radiographs. Recommend follow-up: In a low-risk patient, no routine follow-up. In a high-risk patient, optional CT at 12 months. 2. Partial middle lobe collapse. 3. Emphysema. 4. Coronary artery disease. D/ / Ousmane Limon MD / Ousmane Limon MD Interpreting Provider: Ousmane Limon MD Shoulder X-Ray 07/23/18 23:02 IMPRESSION: Chronic rotator cuff tear. No acute bony abnormality. D/ / Jose Rafael Calzada MD / Jose Rfaael Calzada MD Interpreting Provider: Jose Rafael Calzada MD - Assessment and Plan (1) HTN (hypertension) Current Visit: Yes Status: Chronic Assessment and plan: Patient's blood pressure elevated upon arrival to the medical floor. IV hydralazine ordered. Qualifiers: Hypertension type: essential hypertension Qualified Code(s): I10 - Essential (primary) hypertension (2) Troponin level elevated Current Visit: Yes Status: Acute Assessment and plan: Patient denies chest pain. Recent echocardiogram from April 2018 showed: Impressions: LVEF >65%. Normal LV chamber size, wall thickness and function. Mild left ventricular diastolic dysfunction. Normal right ventricular structure and function. Aortic valve not well visualized. Mild aortic sclerosis suggested by Doppler. Mean gradient 7 mmHg. Moderate pulmonary hypertension. Estimated RVSP is 51 mmHg. Likely elevated troponin is secondary to hypertension. Continue to trend troponins Cardiac monitoring (3) CKD (chronic kidney disease) stage 4, GFR 15-29 ml/min Current Visit: No Status: Acute Assessment and plan: Currently at baseline. Continue to monitor renal function Avoid nephrotoxic medication Renally dose meds (4) Tobacco abuse Current Visit: No Status: Acute Assessment and plan: Nicotine patch (5) DVT prophylaxis Current Visit: Yes Status: Acute Assessment and plan: Subcutaneous heparin - Time Spent With Patient Total time spent is greater than 50% in coordination of care (as documented) at patient's floor/unit and/or counseling patient: Greater than 35 minutes
[2018-07-24 05:04] LABS: Hematocrit 32.9 % (35.3-44.9); Hemoglobin 10.6 g/dL (11.5-15.4); Mean Corpuscular HGB Conc 32.2 g/dL (31.6-35.5); Mean Corpuscular Hemoglobin 29.4 pg (28.0-33.3); Mean Corpuscular Volume 91.4 fL (83.0-100.0); Mean Platelet Volume 9.3 fL (9.4-12.4); Platelet Count 229 K/mcL (140-400); White Blood Count 7.3 K/mcL (4.3-11.1)
[2018-07-24 05:22] LABS: Potassium 3.2 mEq/L (3.5-5.1)
[2018-07-24] MEDS: *HR* Heparin 5,000 UNIT/ML VIAL SQ SCH ×2 (05:25→17:35)
[2018-07-24] MEDS: Nicotine 21 MG PATCH.TD24 TD SCH (09:19)
[2018-07-24] MEDS: Furosemide 40 MG TABLET PO SCH (11:28)
[2018-07-24] MEDS: cloNIDine HCl 0.1 MG TABLET PO SCH ×2 (11:28→21:10)
[2018-07-24] MEDS: *HR* LORazepam 1 MG TABLET PO SCH ×2 (14:23→21:10)
[2018-07-24] MEDS ORDERED: *HR* Dextrose 50 % in Water (Syg) 50 ML SYRINGE IVP PRN (16:14)
[2018-07-24] MEDS ORDERED: D5% in Water 1,000 ML IVC PRN (16:14)
[2018-07-24] MEDS ORDERED: Dextrose Gel 15 GM/37.5 ML TUBE PO PRN ×2 (16:14)
[2018-07-24] MEDS: Insulin LISPRO 300 UNITS/3 ML VIAL SQ SCH (17:35)
[2018-07-24] MEDS ORDERED: Metoprolol XL (24 HR) Succ 50 MG TAB.ER.24H PO SCH (18:00)
--- NOTE | 2018-07-24 19:46 | Electrocardiograph Report ---
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
[2018-07-24] MEDS ORDERED: Insulin LISPRO 300 UNITS/3 ML VIAL SQ SCH (21:00)
[2018-07-24] MEDS: hydrALAZINE 25 MG TABLET PO SCH (21:10)
[2018-07-25] MEDS: *HR* Heparin 5,000 UNIT/ML VIAL SQ SCH (05:36)
[2018-07-25 05:46] LABS: Hematocrit 28.7 % (35.3-44.9); Hemoglobin 9.5 g/dL (11.5-15.4); Mean Corpuscular HGB Conc 33.1 g/dL (31.6-35.5); Mean Corpuscular Hemoglobin 30.5 pg (28.0-33.3); Mean Corpuscular Volume 92.3 fL (83.0-100.0); Mean Platelet Volume 9.5 fL (9.4-12.4); Platelet Count 204 K/mcL (140-400); Red Blood Count 3.11 M/mcL (3.82-4.97); Red Cell Distribution Width 15.1 % (11.5-14.5); White Blood Count 5.4 K/mcL (4.3-11.1)
[2018-07-25 06:05] LABS: Calcium 8.5 mg/dL (8.6-10.3); Potassium 3.7 mEq/L (3.5-5.1)
[2018-07-25] MEDS: Nicotine 21 MG PATCH.TD24 TD SCH (08:18)
[2018-07-25] MEDS: cloNIDine HCl 0.1 MG TABLET PO SCH (08:19)
[2018-07-25] MEDS: Insulin LISPRO 300 UNITS/3 ML VIAL SQ SCH ×2 (08:19→13:45)
[2018-07-25] MEDS: Furosemide 40 MG TABLET PO SCH (08:19)
[2018-07-25] MEDS: *HR* LORazepam 1 MG TABLET PO SCH (08:19)
[2018-07-25] MEDS: hydrALAZINE 25 MG TABLET PO SCH (08:19)
[2018-07-25] MEDS ORDERED: Aspirin 81 MG TAB.CHEW PO SCH (09:00)
[2018-07-25 09:37] LABS: Estimated Average Glucose 140 mg/dl; Hemoglobin A1C 6.5 %
--- NOTE | 2018-07-25 09:59 | Internal Med Progress Note ---
Hospitalist Progress Note - Encounter Date of Encounter: 07/25/18 Time of Encounter: 09:56 - Subjective Interval History: Pt seen and examined in the room. She reported improved BP. No chest pain, sob, or palpitation. - Exam Vitals: Temp Pulse Resp BP Pulse Ox 98.0 F 61 16 154/47 94 07/25/18 06:40 07/25/18 06:40 07/25/18 06:40 07/25/18 06:40 07/25/18 06:40 Exam: PHYSICAL EXAMINATION: GENERAL APPEARANCE: The patient is alert, oriented and in no acute distress. HEENT: Head is normocephalic. The sinuses are nontender. Pupils are equal and reactive. The nares are patent. Oropharynx clear without lesions. NECK: Supple without lymphadenopathy. HEART: Regular rate and rhythm. LUNGS: No crackles or wheezes are heard. ABDOMEN: Soft, nontender, nondistended with good bowel sounds heard. Inguinal area is normal. EXTREMITIES: Without cyanosis, clubbing or edema. NEUROLOGICAL: Gross nonfocal. SKIN: Warm and dry without any rash. - Assessment and Plan (1) HTN (hypertension) Current Visit: Yes Status: Chronic Assessment and Plan: Clonidine started, BP well controlled. (2) Tobacco abuse Current Visit: No Status: Acute Assessment and Plan: Nicotine patch (3) CKD (chronic kidney disease) stage 4, GFR 15-29 ml/min Current Visit: No Status: Acute Assessment and Plan: Currently at baseline. Continue to monitor renal function Avoid nephrotoxic medication Renally dose meds (4) Troponin level elevated Current Visit: Yes Status: Acute Assessment and Plan: Chronic trop elevation due to CKD. (5) DVT prophylaxis Current Visit: Yes Status: Acute Assessment and Plan: Subcutaneous heparin (6) Atelectasis of right lung Current Visit: Yes Status: Acute Assessment and Plan: Atelactesis on CT, Pulm consulted. - Time Spent with Patient Total time spent is greater than 50% in coordination of care (as documented) at patient's floor/unit and/or counseling patient: Greater than 35 minutes Plan of Care Discussed with: patient Internal Medicine: Result - Labs CBC & Chem 7: 07/25/18 04:57 07/25/18 04:57 Labs: Short CBC 07/25/18 Range/Units 04:57 WBC 5.4 (4.3-11.1) K/mcL Hgb 9.5 L (11.5-15.4) g/dL Hct 28.7 L (35.3-44.9) % Plt Count 204 (140-400) K/mcL BMP 07/25/18 04:57 Sodium 137 Potassium 3.7 Chloride 105 Carbon Dioxide 26 BUN 45 H Creatinine 2.98 H Glucose 131 H Calcium 8.5 L Cardiac Enzymes 07/24/18 Range/Units 09:38 Troponin I 0.04 H* (< 0.04) ng/mL Consult Discharge Plan - Plan Referrals: Jim Sandy [Primary Care Provider] - 07/31/18 1:45 pm (1) HTN (hypertension) Qualifiers: Hypertension type: essential hypertension Qualified Code(s): I10 - Essential (primary) hypertension
[2018-07-25 12:02] VITALS: BP 138/64
--- NOTE | 2018-07-25 14:45 | Discharge Summary ---
- NOTES TO OUTPATIENT PROVIDER Notes to Outpatient Provider: f/u with Renal as scheduled. F/u with PCP within 2 weeks. Orders not resulted at time of discharge: Pending orders 07/26/18 04:00 BMP [Basic Metabolic Panel] AM 0400 Complete Blood Count w/o Diff [HEME] AM 0400 Date of Encounter: 07/25/18 Time of Encounter: 14:42 - Discharge Diagnosis (1) HTN (hypertension) Priority: Primary Status: Chronic Qualifiers: Hypertension type: essential hypertension Qualified Code(s): I10 - Essential (primary) hypertension (2) Tobacco abuse Priority: Secondary Status: Acute (3) CKD (chronic kidney disease) stage 4, GFR 15-29 ml/min Priority: Secondary Status: Chronic (4) Troponin level elevated Priority: Primary Status: Acute (5) DVT prophylaxis Priority: Primary Status: Acute (6) Atelectasis of right lung Priority: Primary Status: Acute Hospital course: Ms. Pierre is a 78 year old female presented to the emergency room with concerns about her blood pressure. She has a home pressure cuff, and has noted that it has been elevated today. She remembers the systolic had been 210 at home. She has a history of hypertension, and has seen her primary care physician for medication.after multiple checks she decided to come to the emergency room for further evaluation. In the emergency room patient's initial vital signs indicated a blood pressure of 222/89. CBC significant for a hemoglobin of 10.8. BMP notable for elevated creatinine of 2.94 and GFR of 15. She has a known history of chronic kidney disease stage IV. Initial troponin 0.04. BNP 549 Chest x-ray was noted for having round opacities within the right middle lung and a CT of the chest is recommended. Chest CT demonstrated scattered tiny pulmonary nodules, are she will middle lobe collapse and emphysema. EKG: Normal sinus rhythm, rate of 94. QTC 414. No ischemic changes Due to patient's elevated blood pressure and elevated troponin she was admitted to the hospital for further management. Serial troponin was at a flat level, inconsistent with ACS, likely secondary to chronic renal disease. BP was monitored and clonidine was started. Right middle lobe atelectasis which was detected on CT was discussed with patient, she refused further evaluation and stated that she has no trouble breathing. Her BP was controlled and upon discharge her SBP was at 120s. Pt will be discharged home today, f/u with PCP and renal as scheduled. Discharge discussed with: patient, family Time spent discussing smoking cessation with patient: more than 10 minutes - Time Spent with Patient Total time spent providing and/or coordinating discharge services: Time spent: Greater than 30 minutes - Discharge Medications Prescriptions: New cloNIDine HCl [CloNIDine HCl] 0.1 mg PO BID #60 tablet Continued Metoprolol Succinate 100 mg PO QPM Aspirin 81 mg PO DAILY Atorvastatin [Lipitor] 10 mg PO DAILY LORazepam [Ativan] 1 mg PO BID hydrALAZINE [HydrALAZINE] 25 mg PO BID Furosemide [Lasix] 40 mg PO DAILY glyBURIDE [GlyBURIDE] 1.25 mg PO DAILY PRN PRN Reason: Blood Sugar - High Renal Vitamin [Renal Caps Softgel] 1 mg PO DAILY Home Medications: Aspirin 81 mg PO DAILY 11/26/16 [History] Metoprolol Succinate 100 mg PO QPM 11/26/16 [History] Atorvastatin [Lipitor] 10 mg PO DAILY 08/26/17 [History] LORazepam [Ativan] 1 mg PO BID 08/26/17 [History] Furosemide [Lasix] 40 mg PO DAILY 07/24/18 [History] hydrALAZINE [HydrALAZINE] 25 mg PO BID 07/24/18 [History] Renal Vitamin [Renal Caps Softgel] 1 mg PO DAILY 07/25/18 [History] cloNIDine HCl [CloNIDine HCl] 0.1 mg PO BID #60 tablet 07/25/18 [Rx] glyBURIDE [GlyBURIDE] 1.25 mg PO DAILY PRN 07/25/18 [History] Allergies/Adverse Reactions: Allergy/AdvReac Type Severity Reaction Status Date / Time prednisolone AdvReac Vomiting Verified 07/23/18 18:51 Date of admission: 07/23/18 23:26 Primary care physician: Jim Sandy Anticipated date of discharge: 07/25/18 - Constitutional Vitals: Temp Pulse Resp BP Pulse Ox 97.4 F L 66 16 138/64 98 07/25/18 11:48 07/25/18 11:48 07/25/18 11:48 07/25/18 11:48 07/25/18 11:48 General appearance: Present: cooperative, A&O X 3, pleasant, no acute distress, answers questions appropriately Exam: PHYSICAL EXAMINATION: GENERAL APPEARANCE: The patient is alert, oriented and in no acute distress. HEENT: Head is normocephalic. The sinuses are nontender. Pupils are equal and reactive. The nares are patent. Oropharynx clear without lesions. NECK: Supple without lymphadenopathy. HEART: Regular rate and rhythm. LUNGS: No crackles or wheezes are heard. ABDOMEN: Soft, nontender, nondistended with good bowel sounds heard. Inguinal area is normal. EXTREMITIES: Without cyanosis, clubbing or edema. NEUROLOGICAL: Gross nonfocal. SKIN: Warm and dry without any rash. - Patient Status Disposition: Home, Self-Care Condition: Good Functional capacity at discharge: independent ambulation Overall status at discharge: patient is back to baseline - Discharge Instructions Follow Up With: Jim Sandy [Primary Care Provider] - 07/31/18 1:45 pm - Diet and Activity Activity: resume usual activities as tolerated Diet: low fat, low cholesterol, low salt diet, other (renal diet)
== END 2018-07-25 16:12 | disposition home or self-care (01) | DRG 683 ==
LOC: EMEROOARM 18:44 → 3BNU 18:44 → OBSVTOIN 23:26 → 3BNU 07-24 00:38
PROVIDERS: ADMIT Internal Medicine; ATTEND Internal Medicine

== ENCOUNTER 2019-12-31 17:47 | Inpatient (IN) ==
[2019-12-31] MEDS ORDERED: Isovue-370 500 ML BOTTLE IVP ONE (18:09)
[2019-12-31] MEDS ORDERED: 0.9 % Sodium Chloride 1,000 ML IVC ONE ×2 (18:18→19:46)
[2019-12-31 18:38] LABS: Basophils % 0.4 %; Eosinophils # 0.2 K/mcL (0.0-0.6); Eosinophils % 1.5 %; Hematocrit 43.8 % (35.3-44.9); Hemoglobin 14.3 g/dL (11.5-15.4); Immature Granulocytes % 0.5 % (0-4); Lymphocytes # 1.7 K/mcL (0.6-4.6); Lymphocytes % 16.6 %; Mean Corpuscular HGB Conc 32.6 g/dL (31.6-35.5); Mean Corpuscular Hemoglobin 33.4 pg (28.0-33.3); Mean Corpuscular Volume 102.3 fL (83.0-100.0); Mean Platelet Volume 8.6 fL (9.4-12.4); Monocytes # 0.9 K/mcL (0.0-1.3); Neutrophils # 7.6 K/mcL (1.6-8.9); Platelet Count 311 K/mcL (140-400); Red Blood Count 4.28 M/mcL (3.82-4.97); Red Cell Distribution Width 15.6 % (11.5-14.5); White Blood Count 10.5 K/mcL (4.3-11.1)
[2019-12-31 18:59] LABS: Albumin 3.1 g/dL (3.5-5.7); Albumin/Globulin Ratio 1.1 (1.1-2.2); Bilirubin,Indirect 0.5 mg/dL (0.0-1.0); Bilirubin,Total 0.5 mg/dL (0.3-1.0); Calcium 7.2 mg/dL (8.6-10.3); Globulin 2.9 g/dL (2.4-3.5); Magnesium 1.6 mg/dL (1.6-2.6); Potassium 4.3 mEq/L (3.5-5.1)
[2019-12-31] MEDS ORDERED: Ampicillin/Sulbactam 1,500 MG in 0.9 % Sodium Chloride Mini Bag 100 ML IVPB ONE (19:45)
[2019-12-31] MEDS ORDERED: Naloxone 0.4 MG/ML INJ IVP PRN (20:33)
[2019-12-31] MEDS ORDERED: Ondansetron ODT 4 MG TAB.RAPDIS SL PRN (20:33)
[2019-12-31] MEDS ORDERED: Acetaminophen 325 MG TABLET PO PRN (20:33)
[2019-12-31] MEDS ORDERED: 0.9 % Sodium Chloride 1,000 ML IVC SCH ×2 (20:45→23:03)
[2019-12-31] MEDS ORDERED: *HR* LORazepam 0.5 MG TABLET PO ONE (22:57)
[2019-12-31] MEDS: MetroNIDAZOLE 500 MG/100 ML 500 MG/100 ML BAG IVPB SCH (23:23)
[2020-01-01] MEDS: MetroNIDAZOLE 500 MG/100 ML 500 MG/100 ML BAG IVPB SCH ×3 (06:24→23:33)
[2020-01-01 08:29] LABS: Basophils # 0.1 K/mcL (0.0-0.2); Basophils % 0.6 %; Eosinophils # 0.2 K/mcL (0.0-0.6); Eosinophils % 2.3 %; Hematocrit 40.6 % (35.3-44.9); Hemoglobin 12.7 g/dL (11.5-15.4); Immature Granulocytes % 0.3 % (0-4); Lymphocytes # 1.6 K/mcL (0.6-4.6); Lymphocytes % 20.4 %; Mean Corpuscular HGB Conc 31.3 g/dL (31.6-35.5); Mean Corpuscular Hemoglobin 32.2 pg (28.0-33.3); Mean Corpuscular Volume 102.8 fL (83.0-100.0); Mean Platelet Volume 8.6 fL (9.4-12.4); Monocytes # 0.8 K/mcL (0.0-1.3); Monocytes % 10.3 %; Neutrophils # 5.2 K/mcL (1.6-8.9); Platelet Count 276 K/mcL (140-400); Red Blood Count 3.95 M/mcL (3.82-4.97); Red Cell Distribution Width 15.5 % (11.5-14.5); Segmented Neutrophils % 66.1 %; White Blood Count 7.9 K/mcL (4.3-11.1)
[2020-01-01 08:41] LABS: INR 1.1; Prothrombin Time 12.2 Seconds (9.4-12.1)
[2020-01-01 08:50] LABS: Calcium 6.2 mg/dL (8.6-10.3); Magnesium 1.3 mg/dL (1.6-2.6); Phosphorous 6.6 mg/dL (2.7-4.5); Potassium 4.3 mEq/L (3.5-5.1)
[2020-01-01] MEDS ORDERED: Sodium Bicarbonate 75 MEQ in 0.45 % Sodium Chloride 1,000 ML IVC SCH (09:30)
[2020-01-01] MEDS: Calcium Gluconate 1gm/50mL 1 GM/50 ML BAG IVPB SCH ×2 (10:28→11:35)
[2020-01-01] MEDS ORDERED: 0.9 % Sodium Chloride 250 ML IVC ONE (11:38)
[2020-01-01] MEDS ORDERED: *HR* Dextrose 50 % in Water (Vial) 50 ML VIAL IVP PRN (11:47)
[2020-01-01] MEDS ORDERED: D5% in Water 1,000 ML IVC PRN (11:47)
[2020-01-01] MEDS ORDERED: Dextrose Gel 15 GM/37.5 ML TUBE PO PRN ×2 (11:47)
[2020-01-01] MEDS: Insulin LISPRO 300 UNITS/3 ML VIAL SQ SCH ×3 (12:29→22:00)
[2020-01-01] MEDS: Nicotine 21 MG PATCH.TD24 TD SCH (16:35)
[2020-01-01 17:47] LABS: Hepatitis B Surface Antibody < 3.10 mIU/mL
[2020-01-01 17:57] LABS: Hepatitis B Surface Antigen Nonreactive (Nonreactive)
[2020-01-01] MEDS ORDERED: Perit. Dialysis with Dex 1.5 % 12,000 ML PERITONEAL ONE (19:00)
[2020-01-01] MEDS: Mirtazapine 15 MG TABLET PO SCH (23:33)
[2020-01-01] MEDS: *HR* LORazepam 1 MG TABLET PO SCH (23:33)
[2020-01-02 04:24] LABS: Basophils % 0.4 %; Eosinophils # 0.2 K/mcL (0.0-0.6); Hematocrit 36.5 % (35.3-44.9); Immature Granulocytes % 0.5 % (0-4); Lymphocytes % 13.7 %; Mean Corpuscular HGB Conc 32.9 g/dL (31.6-35.5); Mean Corpuscular Hemoglobin 33.2 pg (28.0-33.3); Mean Corpuscular Volume 101.1 fL (83.0-100.0); Mean Platelet Volume 8.9 fL (9.4-12.4); Monocytes # 0.6 K/mcL (0.0-1.3); Monocytes % 7.7 %; Neutrophils # 5.6 K/mcL (1.6-8.9); Platelet Count 256 K/mcL (140-400); Red Blood Count 3.61 M/mcL (3.82-4.97); Red Cell Distribution Width 15.3 % (11.5-14.5); Segmented Neutrophils % 75.7 %; White Blood Count 7.4 K/mcL (4.3-11.1)
[2020-01-02 04:37] LABS: Calcium 6.8 mg/dL (8.6-10.3); Phosphorous 6.2 mg/dL (2.7-4.5); Potassium 3.8 mEq/L (3.5-5.1)
[2020-01-02] MEDS: MetroNIDAZOLE 500 MG/100 ML 500 MG/100 ML BAG IVPB SCH ×3 (06:30→21:40)
[2020-01-02] MEDS: Insulin LISPRO 300 UNITS/3 ML VIAL SQ SCH ×4 (07:59→21:33)
[2020-01-02] MEDS: Calcium Gluconate 1gm/50mL 1 GM/50 ML BAG IVPB SCH ×2 (09:20→11:32)
[2020-01-02] MEDS: Nicotine 21 MG PATCH.TD24 TD SCH (09:20)
[2020-01-02] MEDS: *HR* LORazepam 1 MG TABLET PO SCH ×2 (09:20→21:39)
[2020-01-02] MEDS: *HR* Heparin 5,000 UNIT/ML VIAL SQ SCH (17:48)
[2020-01-02] MEDS ORDERED: Metoprolol XL (24 HR) Succ 50 MG TAB.ER.24H PO SCH (18:00)
[2020-01-02] MEDS: Mirtazapine 15 MG TABLET PO SCH (21:39)
[2020-01-03 01:51] LABS: Hematocrit 38.6 % (35.3-44.9); Hemoglobin 12.4 g/dL (11.5-15.4); Mean Corpuscular HGB Conc 32.1 g/dL (31.6-35.5); Mean Corpuscular Hemoglobin 32.4 pg (28.0-33.3); Mean Corpuscular Volume 100.8 fL (83.0-100.0); Mean Platelet Volume 8.8 fL (9.4-12.4); Platelet Count 271 K/mcL (140-400); Red Blood Count 3.83 M/mcL (3.82-4.97); Red Cell Distribution Width 15.8 % (11.5-14.5); White Blood Count 9.3 K/mcL (4.3-11.1)
[2020-01-03 02:11] LABS: Calcium 7.2 mg/dL (8.6-10.3); Magnesium 1.9 mg/dL (1.6-2.6); Phosphorous 7.1 mg/dL (2.7-4.5); Potassium 3.7 mEq/L (3.5-5.1)
[2020-01-03] MEDS: MetroNIDAZOLE 500 MG/100 ML 500 MG/100 ML BAG IVPB SCH (05:37)
[2020-01-03] MEDS: *HR* Heparin 5,000 UNIT/ML VIAL SQ SCH (05:40)
[2020-01-03] MEDS ORDERED: Calcium Acetate 667 MG CAPSULE PO SCH (08:00)
[2020-01-03 08:34] VITALS: BP 106/58
[2020-01-03] MEDS ORDERED: Perit. Dialysis with Dex 1.5 % 12,000 ML PERITONEAL ONE (09:00)
[2020-01-03] MEDS: *HR* LORazepam 1 MG TABLET PO SCH (10:50)
[2020-01-03] MEDS: Nicotine 21 MG PATCH.TD24 TD SCH (10:50)
[2020-01-03] MEDS: Insulin LISPRO 300 UNITS/3 ML VIAL SQ SCH (10:53)
== END 2020-01-03 11:15 | disposition home or self-care (01) | DRG 871 ==
LOC: 3BNU 17:47 → EMEROOARM 17:47 → SUATTDRO 20:27 → 3BNU 21:27 → 2ANU 01-02 21:07
PROVIDERS: ADMIT Internal Medicine; ATTEND Internal Medicine

== ENCOUNTER 2020-01-10 21:15 | Observation (INO) ==
[2020-01-10 22:27] LABS: Basophils % 0.3 %; Red Cell Distribution Width 16.7 % (11.5-14.5)
[2020-01-10 22:28] LABS: Basophils # 0.1 K/mcL (0.0-0.2); Eosinophils # 0.1 K/mcL (0.0-0.6); Eosinophils % 0.3 %; Immature Granulocytes % 0.9 % (0-4); Lymphocytes # 1.6 K/mcL (0.6-4.6); Lymphocytes % 5.1 %; Mean Corpuscular HGB Conc 32.6 g/dL (31.6-35.5); Mean Corpuscular Hemoglobin 33.3 pg (28.0-33.3); Mean Corpuscular Volume 102.4 fL (83.0-100.0); Mean Platelet Volume 9.2 fL (9.4-12.4); Monocytes # 1.3 K/mcL (0.0-1.3); Monocytes % 4.2 %; Neutrophils # 28.4 K/mcL (1.6-8.9); Platelet Count 376 K/mcL (140-400); Segmented Neutrophils % 89.2 %
[2020-01-10 22:38] LABS: INR 1.1; Prothrombin Time 12.2 Seconds (9.4-12.1)
[2020-01-10 22:40] LABS: White Blood Count 31.8 K/mcL (4.3-11.1)
[2020-01-10 22:41] LABS: Activated Partial Thrombo Time 26.1 Seconds (26.0-36.0)
[2020-01-10] MEDS ORDERED: Piperacillin/Tazobactam 3.375 GM in 0.9 % Sodium Chloride Mini Bag 100 ML IVPB ONE (22:52)
[2020-01-10 22:53] LABS: Albumin 2.9 g/dL (3.5-5.7); Albumin/Globulin Ratio 1.2 (1.1-2.2); Bilirubin,Total 0.5 mg/dL (0.3-1.0); Globulin 2.4 g/dL (2.4-3.5); Magnesium 1.6 mg/dL (1.6-2.6); Potassium 3.6 mEq/L (3.5-5.1); Total Protein 5.3 g/dL (6.4-8.9); Troponin I 0.03 ng/mL (< 0.04)
[2020-01-10] MEDS ORDERED: *HR* FentaNYL (PF) 100 MCG/2 ML VIAL IVP ONE (22:53)
[2020-01-10] MEDS ORDERED: Isovue-370 500 ML BOTTLE IVP ONE (22:54)
[2020-01-10] MEDS ORDERED: 0.9 % Sodium Chloride 1,000 ML IVC ONE (23:08)
[2020-01-10 23:15] LABS: Bilirubin,Urine Negative (Negative); Blood,Urine Negative (Negative); Clarity,Urine Clear (Clear); Color,Urine Yellow (Yellow); Glucose,Urine (UA) Normal (Normal); Hyaline Casts,Urine Few per lpf (None Seen); Ketones,Urine Trace mg/dL (Negative); Leukocyte Esterase,Urine Small (Negative); Mucus,Urine Few per lpf (None-Few); Nitrite,Urine Negative (Negative); Protein,Urine 30 mg/dL (Neg-Trace); RBC,Urine 0-3 per hpf (0-3); Specific Gravity,Urine 1.024 (1.010-1.025); Urobilinogen,Urine Normal (Normal)
[2020-01-11] MEDS ORDERED: Naloxone 0.4 MG/ML INJ IVP PRN (00:46)
[2020-01-11] MEDS ORDERED: Ringers Solution, Lactated 1,000 ML IVC ONE (00:52)
[2020-01-11] MEDS ORDERED: *HR* LORazepam 2 MG/ML VIAL IVP ONE ×2 (01:24→04:32)
[2020-01-11] MEDS ORDERED: *HR* Water for inj. (sterile) Vial IV ONE (01:24)
[2020-01-11] MEDS: Calcium Gluconate 1gm/50mL 1 GM/50 ML BAG IVPB SCH ×2 (01:43→03:10)
[2020-01-11] MEDS: Ringers Solution, Lactated 1,000 ML IVC SCH ×2 (03:07→11:33)
[2020-01-11] MEDS ORDERED: D5% in Water 1,000 ML IVC PRN (03:19)
[2020-01-11] MEDS ORDERED: *HR* Dextrose 50 % in Water (Vial) 50 ML VIAL IVP PRN (03:19)
[2020-01-11] MEDS ORDERED: Dextrose Gel 15 GM/37.5 ML TUBE PO PRN ×2 (03:19)
[2020-01-11 04:06] LABS: Mean Platelet Volume 9.1 fL (9.4-12.4)
[2020-01-11 04:08] LABS: Hemoglobin 13.3 g/dL (11.5-15.4); Mean Corpuscular HGB Conc 33.3 g/dL (31.6-35.5); Mean Corpuscular Hemoglobin 33.6 pg (28.0-33.3); Platelet Count 301 K/mcL (140-400); Red Blood Count 3.96 M/mcL (3.82-4.97); Red Cell Distribution Width 16.8 % (11.5-14.5)
[2020-01-11 04:15] LABS: White Blood Count 32.7 K/mcL (4.3-11.1)
[2020-01-11 04:20] LABS: INR 1.1; Prothrombin Time 12.5 Seconds (9.4-12.1)
[2020-01-11 04:27] LABS: Calcium 7.6 mg/dL (8.6-10.3); Chol/HDL Ratio 3.2 (0-4.9); Magnesium 1.5 mg/dL (1.6-2.6); Phosphorous 7.2 mg/dL (2.7-4.5); Potassium 4.1 mEq/L (3.5-5.1)
[2020-01-11] MEDS ORDERED: Vancomycin 1 EACH in 0.9 % Sodium Chloride 250 ML IVPB PRN (05:00)
[2020-01-11] MEDS: *HR* Metoprolol 5 MG/5 ML VIAL IVP SCH ×3 (05:06→17:25)
[2020-01-11] MEDS: Insulin LISPRO 300 UNITS/3 ML VIAL SQ SCH ×3 (06:41→17:26)
[2020-01-11] MEDS: *HR* Heparin 5,000 UNIT/ML VIAL SQ SCH ×3 (06:41→19:56)
[2020-01-11] MEDS: Nicotine 21 MG PATCH.TD24 TD SCH (07:41)
[2020-01-11] MEDS ORDERED: Piperacillin/Tazobactam 3.375 GM in 0.9 % Sodium Chloride Mini Bag 100 ML IVPB SCH (08:00)
[2020-01-11] MEDS ORDERED: Ringers Solution, Lactated 1,000 ML IVC SCH (11:46)
[2020-01-11] MEDS: Piperacillin/Tazobactam 3.375 GM in 0.9 % Sodium Chloride Mini Bag 100 ML IVPB SCH (11:49)
[2020-01-11] MEDS ORDERED: Perit. Dialysis with Dex 1.5 % 6,000 ML PERITONEAL ONE (19:00)
[2020-01-11] MEDS ORDERED: Perit. Dialysis with Dex 2.5 % 6,000 ML PERITONEAL ONE (19:00)
[2020-01-11] MEDS: Insulin DETEMIR 100 UNIT/ML X5UNITS SQ SCH (19:56)
[2020-01-11] MEDS: Ondansetron 4 MG/2 ML VIAL IVP PRN (19:56)
[2020-01-11] MEDS: *HR* LORazepam 1 MG TABLET PO PRN (21:16)
[2020-01-12] MEDS: Piperacillin/Tazobactam 3.375 GM in 0.9 % Sodium Chloride Mini Bag 100 ML IVPB SCH ×3 (00:20→22:35)
[2020-01-12] MEDS: *HR* Metoprolol 5 MG/5 ML VIAL IVP SCH ×3 (00:23→11:44)
[2020-01-12] MEDS: Insulin LISPRO 300 UNITS/3 ML VIAL SQ SCH ×5 (00:38→20:29)
[2020-01-12 06:21] LABS: Hemoglobin 12.9 g/dL (11.5-15.4); Mean Corpuscular HGB Conc 32.3 g/dL (31.6-35.5); Mean Corpuscular Hemoglobin 32.6 pg (28.0-33.3); Mean Platelet Volume 9.2 fL (9.4-12.4); Platelet Count 317 K/mcL (140-400); Red Blood Count 3.96 M/mcL (3.82-4.97); Red Cell Distribution Width 16.8 % (11.5-14.5)
[2020-01-12 06:36] LABS: White Blood Count 38.5 K/mcL (4.3-11.1)
[2020-01-12] MEDS: *HR* Heparin 5,000 UNIT/ML VIAL SQ SCH ×3 (06:45→20:39)
[2020-01-12 06:50] LABS: Calcium 7.2 mg/dL (8.6-10.3); Magnesium 2.2 mg/dL (1.6-2.6); Potassium 4.1 mEq/L (3.5-5.1)
[2020-01-12] MEDS: Nicotine 21 MG PATCH.TD24 TD SCH (07:56)
[2020-01-12] MEDS: Aspirin Enteric Coated 81 MG Tablet PO SCH (07:56)
[2020-01-12] MEDS: allopurinoL 100 MG TABLET PO SCH (07:57)
[2020-01-12 08:33] LABS: RBC,Peritoneal Fluid < 2000 RBC/mcL
[2020-01-12 08:40] LABS: Amylase,Peritoneal Fluid 36 Units/L (No Ref Range); Glucose,Peritoneal Fluid 204 mg/dL (No Ref Range); LDH,Peritoneal Fluid 237 Units/L (No Ref Range); Total Protein,Peritoneal Fluid < 2.0 g/dL
[2020-01-12 09:01] LABS: Basophils,Peritoneal Fluid 0 %
[2020-01-12 09:02] LABS: Appearance of Peritoneal Fl CLEAR (Clear)
[2020-01-12] MEDS: Gentamicin Oint 15 GM TUBE TP SCH (10:42)
[2020-01-12] MEDS: Metoprolol XL (24 HR) Succ 50 MG TAB.ER.24H PO SCH ×2 (14:22→16:52)
[2020-01-12] MEDS ORDERED: Perit. Dialysis with Dex 1.5 % 12,000 ML PERITONEAL ONE (19:53)
[2020-01-12] MEDS: Insulin DETEMIR 100 UNIT/ML X5UNITS SQ SCH (20:29)
[2020-01-12] MEDS ORDERED: Metoprolol 100 MG TABLET PO SCH (21:00)
[2020-01-13] MEDS: *HR* LORazepam 1 MG TABLET PO PRN (01:14)
[2020-01-13 02:04] LABS: Hematocrit 42.6 % (35.3-44.9); Hemoglobin 13.4 g/dL (11.5-15.4); Mean Corpuscular HGB Conc 31.5 g/dL (31.6-35.5); Mean Corpuscular Hemoglobin 32.3 pg (28.0-33.3); Mean Corpuscular Volume 102.7 fL (83.0-100.0); Mean Platelet Volume 9.3 fL (9.4-12.4); Platelet Count 269 K/mcL (140-400); Red Blood Count 4.15 M/mcL (3.82-4.97); Red Cell Distribution Width 17.2 % (11.5-14.5)
[2020-01-13 02:09] LABS: White Blood Count 32.7 K/mcL (4.3-11.1)
[2020-01-13 02:20] LABS: Magnesium 2.1 mg/dL (1.6-2.6); Phosphorous 8.5 mg/dL (2.7-4.5); Potassium 4.8 mEq/L (3.5-5.1)
[2020-01-13] MEDS: *HR* Heparin 5,000 UNIT/ML VIAL SQ SCH (05:44)
[2020-01-13] MEDS: allopurinoL 100 MG TABLET PO SCH (08:42)
[2020-01-13] MEDS: Aspirin Enteric Coated 81 MG Tablet PO SCH (08:42)
[2020-01-13] MEDS: Nicotine 21 MG PATCH.TD24 TD SCH (08:42)
[2020-01-13] MEDS: Insulin LISPRO 300 UNITS/3 ML VIAL SQ SCH ×4 (08:43→20:07)
[2020-01-13] MEDS: MetroNIDAZOLE 500 MG/100 ML 500 MG/100 ML BAG IVPB SCH ×2 (08:43→18:05)
[2020-01-13] MEDS: Gentamicin Oint 15 GM TUBE TP SCH (08:44)
[2020-01-13] MEDS: Vancomycin Oral Soln 125 MG/2.5 ML UDC PO SCH ×4 (08:55→20:09)
[2020-01-13] MEDS ORDERED: Ringers Solution, Lactated 1,000 ML IVC ONE (12:01)
[2020-01-13] MEDS ORDERED: Ringers Solution, Lactated 1,000 ML IVC SCH ×2 (12:15→16:56)
[2020-01-13] MEDS: Piperacillin/Tazobactam 3.375 GM in 0.9 % Sodium Chloride Mini Bag 100 ML IVPB SCH (14:36)
[2020-01-13] MEDS: Metoprolol XL (24 HR) Succ 50 MG TAB.ER.24H PO SCH (16:20)
[2020-01-13] MEDS: Ringers Solution, Lactated 1,000 ML IVC SCH (19:23)
[2020-01-13] MEDS ORDERED: Perit. Dialysis with Dex 1.5 % 12,000 ML PERITONEAL ONE (20:01)
[2020-01-13] MEDS: Insulin DETEMIR 100 UNIT/ML X5UNITS SQ SCH (20:07)
[2020-01-13] MEDS ORDERED: *HR* Metoprolol 5 MG/5 ML VIAL IVP ONE ×2 (21:48→21:59)
[2020-01-13] MEDS: Ondansetron 4 MG/2 ML VIAL IVP PRN (22:00)
[2020-01-13] MEDS ORDERED: DilTIAZem 50 MG/50 ML IV.SOLN IVC SCH (22:00)
[2020-01-13] MEDS ORDERED: *HR* LORazepam 2 MG/ML VIAL ONE (22:14)
[2020-01-13] MEDS ORDERED: *HR* LORazepam 2 MG/ML VIAL IVP ONE (22:14)
[2020-01-13] MEDS ORDERED: Albumin 25% 25gram/100mL 25 GM/100 ML IV.SOLN IVPB ONE (23:09)
[2020-01-14] MEDS: MetroNIDAZOLE 500 MG/100 ML 500 MG/100 ML BAG IVPB SCH ×2 (01:24→07:56)
[2020-01-14] MEDS: Piperacillin/Tazobactam 3.375 GM in 0.9 % Sodium Chloride Mini Bag 100 ML IVPB SCH ×3 (01:24→20:11)
[2020-01-14] MEDS: Ringers Solution, Lactated 1,000 ML IVC SCH (01:25)
[2020-01-14 05:04] LABS: Basophils # 0.1 K/mcL (0.0-0.2); Basophils % 0.2 %; Hematocrit 32.9 % (35.3-44.9); Immature Granulocytes % 0.9 % (0-4); Lymphocytes # 0.7 K/mcL (0.6-4.6); Lymphocytes % 3.1 %; Mean Corpuscular HGB Conc 32.5 g/dL (31.6-35.5); Mean Corpuscular Hemoglobin 32.5 pg (28.0-33.3); Mean Platelet Volume 9.8 fL (9.4-12.4); Monocytes # 1.6 K/mcL (0.0-1.3); Neutrophils # 20.5 K/mcL (1.6-8.9); Nucleated Red Blood Cells 0.2 /100 WBC (0); Platelet Count 252 K/mcL (140-400); Red Blood Count 3.29 M/mcL (3.82-4.97); Red Cell Distribution Width 16.7 % (11.5-14.5); Segmented Neutrophils % 88.8 %; White Blood Count 23.1 K/mcL (4.3-11.1)
[2020-01-14 05:08] LABS: Magnesium 1.9 mg/dL (1.6-2.6)
[2020-01-14 05:09] LABS: Potassium 4.8 mEq/L (3.5-5.1)
[2020-01-14 05:51] LABS: Hemoglobin 10.7 g/dL (11.5-15.4)
[2020-01-14 06:50] LABS: Platelet Estimate Normal (Normal)
[2020-01-14] MEDS: Insulin LISPRO 300 UNITS/3 ML VIAL SQ SCH ×4 (07:58→20:10)
[2020-01-14] MEDS: Gentamicin Oint 15 GM TUBE TP SCH (07:59)
[2020-01-14] MEDS: Aspirin Enteric Coated 81 MG Tablet PO SCH (07:59)
[2020-01-14] MEDS: Vancomycin Oral Soln 125 MG/2.5 ML UDC PO SCH (07:59)
[2020-01-14] MEDS: Nicotine 21 MG PATCH.TD24 TD SCH (07:59)
[2020-01-14] MEDS ORDERED: Ringers Solution, Lactated 1,000 ML IVC SCH (08:00)
[2020-01-14] MEDS: allopurinoL 100 MG TABLET PO SCH (08:00)
[2020-01-14] MEDS ORDERED: Vancomycin Oral Soln 125 MG/2.5 ML UDC PO SCH (10:00)
[2020-01-14] MEDS ORDERED: Glycopyrrolate 0.2 MG/ML VIAL IVP ONE (12:52)
[2020-01-14] MEDS: *HR* HYDROmorphone (PF) 1 MG/ML SYRINGE IVP PRN ×3 (12:56→21:28)
[2020-01-14] MEDS: *HR* LORazepam 2 MG/ML VIAL IVP PRN (12:57)
[2020-01-14 19:57] VITALS: BP 79/57
[2020-01-15] MEDS: *HR* HYDROmorphone (PF) 1 MG/ML SYRINGE IVP PRN ×4 (00:27→09:46)
[2020-01-15] MEDS: *HR* LORazepam 2 MG/ML VIAL IVP PRN (09:47)
== END 2020-01-15 10:02 | disposition expired ==
LOC: EMEROOARM 21:15 → 2NNU 21:15 → SUATTDRO 01-11 01:23 → 2NNU 01-11 02:29
PROVIDERS: ADMIT Family Medicine; ATTEND Pharmacist